=== PATIENT | male | born 1950 | race Caucasian/White ===

== ENCOUNTER → 2024-11-19 | Outpatient (CLI) | payer MEDICARE ==
[2024-11-19 14:32] LABS: INR 0.9 (<1.2); Partial Thromboplastin Time 23.8 sec (22.0-30.0); Prothrombin Time 10.3 sec (10.0-12.5)
--- NOTE | 2024-11-19 15:13 | XR ---
EXAMINATION TYPE: XR chest 2V DATE OF EXAM: 11/19/2024 CLINICAL INDICATION: Male, 74 years old with history of Z01.818 M54.16, preop spine surgery. TECHNIQUE: Frontal and lateral views of the chest are obtained. COMPARISON: None FINDINGS: Underlying emphysematous changes are present. There is no focal air space opacity, pleural effusion, or pneumothorax seen. The cardiac silhouette size is within normal limits. The osseous structures are intact. IMPRESSION: No acute cardiopulmonary process. [facility], , 11/19/2024 3:10 PM
[2024-11-19 18:14] LABS: Basophils # (A) 0.09 X 10*3/uL (0.00-0.10); Basophils % (A) 1.4 %; Eosinophils % (A) 6.1 %; HCT 31.7 % (39.6-50.0); HGB 10.3 g/dL (13.0-17.0); Lymphocytes # (A) 1.06 X 10*3/uL (0.90-5.00); Lymphocytes % (A) 16.1 %; MCH 30.5 pg (27.0-32.0); MCHC 32.5 g/dL (32.0-37.0); MCV 93.8 FL (80.0-97.0); Mean Platelet Volume 9.6 FL (9.5-12.2); Monocytes # (A) 0.83 X 10*3/uL (0.20-1.00); Monocytes % (A) 12.6 %; NRBC Per 100 WBC 0 X 10*3/uL (0.00-0.01); Neutrophils % (A) 63.5 %; Platelet Count 307 X 10*3/uL (140-440); RBC 3.38 X 10*6/uL (4.40-5.60); RDW 12.8 % (11.5-14.5)
[2024-11-19 18:56] LABS: BUN/Creat Ratio 19.25 Ratio (12.00-20.00); Blood Urea Nitrogen 30.8 mg/dL (9.0-27.0); Calcium 9.3 mg/dL (8.7-10.3); Carbon Dioxide 23.8 mmol/L (21.6-31.8); Chloride 94 mmol/L (96-109); Glucose 70 mg/dL (70-110); Potassium 4.8 mmol/L (3.5-5.5); Sodium 130 mmol/L (135-145)
[2024-11-19 19:30] LABS: Appearance,Urine Clear (Clear); Bilirubin,Urine Negative (Negative); Blood,Urine Negative (Negative); Color,Urine Yellow (Yellow); Ketones,Urine Negative (Negative); Nitrite,Urine Negative (Negative); PH, Urine 6.5; Specific Gravity,Urine 1.013 (1.001-1.030); Urobilinogen,Urine 0.2 E.U./DL
== END | disposition home or self-care (01) ==
LOC: LABPAT 13:06
PROVIDERS: ATTEND Orthopaedic Surgery Orthopaedic Surgery of the Spine
DX: Z01.818 Encounter for other preprocedural examination (principal); Z22.322 Carrier or suspected carrier of Methicillin resistant Staphylococcus aureus; M54.16 Radiculopathy, lumbar region
CPT/HCPCS: 36415; 71046; 80048; 81003; 85025; 85610; 85730; 87070; 93005

== ENCOUNTER 2024-12-15 05:44 | Inpatient (IN) | payer MEDICARE ==
[2024-12-15] MEDS: IV FLUID CONTINUATION 1,000 ML IV ONE ×5 (06:40→14:49)
[2024-12-15] MEDS: LACTATED RINGERS 1,000 ML IV SCH (06:55)
[2024-12-15] MEDS: MIDAZOLAM 2 MG/2 ML VIAL IV PRN (06:58)
[2024-12-15] MEDS ORDERED: HYDROmorphone 0.5 MG/0.5 ML SYRINGE IVP PRN (07:00)
[2024-12-15 07:06] LABS: African American GFR (CKD) 62 (>60 ml/min/1.73 sqM); Anion Gap 11 mmol/L; Blood Urea Nitrogen 24 mg/dL (9-20); Calcium 9.4 mg/dL (8.4-10.2); Carbon Dioxide 23 mmol/L (22-30); Chloride 99 mmol/L (98-107); Glucose 90 mg/dL (74-99); Non-African American GFR(CKD) 54 (>60 ml/min/1.73 sqM); Potassium 4.4 mmol/L (3.5-5.1); Sodium 133 mmol/L (137-145)
[2024-12-15] MEDS ORDERED: fentaNYL (PF) 50 MCG/ML 2 ML AMP ONE (07:15)
[2024-12-15] MEDS ORDERED: TRANEXAMIC 1,000 MG/100ML-NACL PREMIX BAG ONE (07:15)
[2024-12-15] MEDS ORDERED: ALBUMIN HUMAN 5% (25gm) 500 ML VIAL IVPB ONE (07:15)
[2024-12-15] MEDS ORDERED: PHENYLEPHRINE 10 MG/ML VIAL ONE (07:15)
[2024-12-15] MEDS ORDERED: MIDAZOLAM 2 MG/2 ML VIAL ONE (07:15)
[2024-12-15] MEDS ORDERED: SUCCINYLCHOLINE CHLORIDE 200 MG/10 ML VIAL IV ONE (07:15)
[2024-12-15] MEDS ORDERED: PROPOFOL 10 MG/ML 20 ML VIAL IV ONE (07:15)
[2024-12-15] MEDS ORDERED: ePHEDrine 50 MG/ML 1 ML VIAL ONE (07:15)
[2024-12-15] MEDS ORDERED: LIDOCAINE 1% INJ 10MG/ML (20 ML MDV) ONE (07:15)
[2024-12-15] MEDS ORDERED: ROCURONIUM 10 MG/ML (5 ML VIAL) IV ONE (07:15)
[2024-12-15] MEDS: ONDANSETRON 4 MG/2 ML VIAL IVP ONE (07:23)
[2024-12-15] MEDS: ceFAZolin 2 GM in DEXTROSE 5% IN WATER 50 ML IVPB PRN (07:30)
[2024-12-15] MEDS: ceFAZolin 1,000 MG in SODIUM CHLORIDE 0.9% IRRIGATIO 1,000 ML IRRIGATION PRN ×2 (08:05→09:50)
[2024-12-15] MEDS: LIDOCAINE 1%-EPI 1:100,000 20 ML VIAL SQ ONE (08:10)
[2024-12-15] MEDS: THROMBIN (BOVINE) 5,000 UNIT VIAL TOPICAL ONE (08:15)
--- NOTE | 2024-12-15 08:21 | P.ANPRN ---
Procedure Note - Anesthesia - Invasive Line Left Arterial Line Time Out Performed: Yes Date of Procedure: 12/15/24 Time of Procedure: 07:10 Location of Patient: PreOp Preparation: Sterile Prep, Sterile Dressing Arterial Line Location: Radial Ultrasound Used: Yes Purpose - Visualization and Identification of Vasculature: Yes Image Stored and Saved: Yes Narrative: Invasive line placement per sterile protocol utilized.
[2024-12-15] MEDS: LACTATED RINGERS 1,000 ML IV ONE (12:41)
--- NOTE | 2024-12-15 12:58 | FL ---
EXAMINATION TYPE: FL guidance operating room, XR lumbar spine 2 or 3V DATE OF EXAM: 12/15/2024 12:54 PM COMPARISON: Pre Operative Images if available both CT/MRI or plain film CLINICAL INDICATION: Male, 74 years old with history of PLDF; TECHNIQUE: FL guidance operating room, XR lumbar spine 2 or 3V, multiple fluoroscopic images provided for procedure. DAP: 4.865 mGym2 Gycm2 uGym2 cGycm2 or equivalent. FINDINGS: Fluoroscopic images during internal fixation demonstrate hardware in appropriate position. Hardware a ppears intact. No immediate complication identified. IMPRESSION: 1. No evidence for intraoperative complication. 2. Please see the operative/procedural note for further details. [facility], , 12/15/2024 12:55 PM
[2024-12-15] MEDS ORDERED: MAGNESIUM HYDROXIDE 2,400 MG/30 ML CUP PO PRN (13:06)
[2024-12-15] MEDS ORDERED: SENNOSIDES-DOCUSATE SODIUM 1 EACH TAB PO PRN (13:06)
[2024-12-15] MEDS ORDERED: BENZOCAINE/MENTHOL LOZENG 1 EACH LOZENGE MUCOUS MEM PRN (13:06)
[2024-12-15] MEDS ORDERED: HYDROmorphone 1 MG/ML 1 ML SYRINGE IVP PRN (13:06)
[2024-12-15] MEDS ORDERED: diazePAM 5 MG TAB PO PRN (13:09)
[2024-12-15] MEDS ORDERED: ALBUTEROL NEBULIZED 2.5 MG/3 ML INHALATION PRN (13:09)
--- NOTE | 2024-12-15 13:22 | P.OP ---
Date of Procedure: 12/15/24 Preoperative Diagnosis: Spinal stenosis, degenerative scoliosis, herniated nucleus pulposus, lower EXTR radiculopathy, neurogenic claudication, degenerative disc disease, low back pain, facet arthrosis Postoperative Diagnosis: Same Anesthesia: GETA Pathology: none sent Condition: stable Disposition: PACU Description of Procedure: BRIEF OPERATIVE NOTE Preoperative Diagnosis: Spinal stenosis, degenerative scoliosis, herniated nucleus pulposus, lower extremity colopathy, neurogenic claudication, facet arthrosis, low back pain Postoperative Diagnosis: Same Procedure: Open posterior lateral lumbar decompression and fusion lumbar spine at L1-2 L2-3 L3-4 L4-5 Wide bilateral open laminectomy decompression with partial foraminotomies and facetectomy L1-L2 3 L3-4 L4-5 Placement of pedicle screws and hardware L1-L2 L3-L4-L5 bilaterally Transforaminal lumbar interbody fusion L3-4 L4-5 for a 360 degree fusion Discectomy for decompression L2-3 L3-4 L4-[address]-guided Neofect navigation system for placement of hardware Use of fluoroscopic guidance intraoperatively Harvesting local autogenous bone graft for use for supplementing the allograft bone graft Harvesting of bone marrow aspirate for supplementation of bone graft Use of Cell Saver Use of intraoperative neuromonitoring Surgeon: Dr. Sanchez Bridge Attacher: Chalino GUZMAN who is present throughout the entire the case persistence during positioning, dissection, exposure, visualization, and all crucial elements of the case as well as closure. Anesthesia: General anesthesia per Dr. Gil Brandt Estimated blood loss: Approximately 200 cc Complications: None apparent Components implanted: K2M Cromwell cannulated pedicle screw system with use of 4.5, 5.5, and 6.5 millimeter screws with rods and interbody peek and titanium cages and 1 cross-link, along with demineralized bone matrix fibers boats to supplement the local antis bone graft Disposition: To recovery room in good stable condition. OPERATIVE INDICATIONS OPERATIVE SUMMARY Patient has longstanding history of low back pain lower extreme radiculopathy which is worsening over the past several months. He has been experiencing pain for several years but has been managing that conservatively. He has been having worsening symptoms of his back in his lower extremities and conservative measures are failing him. He has been having progressive worsening of his symptoms and different treatment options were explained to him. We discussed possibly of surgery and the possibility of fusion at multiple levels given his degenerative scoliosis and relative instability. I discussed with him all the risk complications alternatives benefits including but not limited to the risk of bleeding risk of infection risk of need for further surgery risk of decreased loss of motion loss of function malunion nonunion hardware failure nerve damage paralysis heart attack blindness as well as affect that surgery may not alleviate his symptoms. Patient did have some issues with hyponatremia preoperatively but this was stabilized and he understood the ramifications of these issues. After discussing all the risks, patient alternatives and benefits at length, the patient elected to proceed with surgical intervention, signed informed consent, and presented for their procedure. The patient was seen and examined in the preoperative holding area and the surgical site was marked. The patient was given antibiotics and brought to the operating room. The patient was sedated and intubated by anesthesia in standard fashion. The patient was positioned on to the operating room table in a prone position on the appropriate frame which was well-padded and well molded. We were careful to pad any bony prominences and pressure points. We were careful to maintain the patient's cervical spine and good neutral alignment and position throughout. The patient was prepped and draped in a normal standard fashion. An appropriate timeout and keystone protocol performed. We were able to proceed with the surgery. The local wound area was infiltrated with local anesthetic. An incision was made at the midline longitudinally over the appropriate levels. Dissection was taken down subcutaneously to the level of the fascia which was split midline. Dissection was taken over the lamina bilaterally over the facet joints and to the transverse processes. Intraoperative x-ray was taken which showed a marker at the appropriate level. With the appropriate level positively confirmed, we were able to proceed with placement of the pedicle holes and screws. The patient had all their twitches back. The wound was copiously irrigated and suctioned dry as had been done periodically throughout the case. Screw holes were established similarly at each level. Intraoperatively we used a LOVEFiLM CT navigation guidance system and we were able to place a reference device on the bony landmark approximately L3. With his intact we draped appropriately and did a spin intraoperatively to get excellent visualization and intraoperative real-time visualization for placement of pedicle screws. For placement of pedicle screws I was able to use direct visual technique as well as intraoperative CT guidance as well as fluoroscopic guidance in order to place screws bilaterally at L1 L2-L3-L4 and L5. I was able to establish the sharp Jose Angel Rainey at the pedicle this was placed using CT navigation and direct visualization and then I was able to place a wire into the vertebral body itself. The position was checked at each level and found to have excellent position at L1-L5. Over the wires I was unable to place pedicle screw of appropriate size at L1 L2-L3-L4 and L5 bilaterally in good alignment good position with excellent bony purchase. At each of the levels the transverse process or sacral ala was decorticated with a high-speed bur. I was able to use these holes to place the appropriate size screw and good alignment and good position with good bony purchase. When the screws were inserted there were stimulated, and found to have no stimulation at 20 mA. I was able to turn my attention to the decompression. decompression was performed with a combination of rongeurs, curettes, Kerrison rongeurs and a ball-tip feeler. Patient had evidence of severe stenosis at the neural foramen at each level particular with central stenosis at L2-3 L3-4 and L4-5. I was able to get excellent central bilateral foraminal decompression with laminectomy foraminotomies and partial facetectomy. All of the bone that was removed was stripped and morcellized for use as autogenous bone graft later in the case. I was able to obtain good central decompression as well as wide bilateral foraminal decompression. There is no evidence of dural tear or leak. Good hemostasis was maintained. The wound was irrigated and suctioned dry. I performed a complete facetectomy at the appropriate level L2-3 L3-4 and L4-5. All bone that was removed was saved for local autogenous bone grafting. I was able to gain access to the disc space at the appropriate level/levels. At L2-3 there was no evidence of motion at that level. I felt that there was some degree of autofusion at L2-3 but I was able to do discectomy for some decompression. At L3-4 and L4-5 I was able to mobilize the area well and get excellent decompression wound and discectomy. Discectomy provided further decompression. Good hemostasis was maintained. I was able to protect the neurologic structures. A discectomy was performed. This provided further decompression. I was also able to perform complete discectomy and endplate preparation with a combination of pituitary curettes, rasps and scrapers. With the interbody space prepared, I was able to do appropriate sizing. The appropriate size cage was chosen. The wound was irrigated and suctioned dry. The interbody space was packed with local autogenous bone graft and a small portion of bone graft substitute, as was the cage itself. Protecting the soft tissue structures, I was able place the cage in good alignment and good position with good fit and fill. There is no evidence of extrusion of the graft material nor protrusion of the interbody device. The device was placed to help supplement the alignment of the scoliosis as well. The wound was irrigated and suctioned dry. With the hardware intact, intraoperative x-ray was again taken which showed good alignment and position of the hardware at the appropriate levels from L1 L5. We were then able to measure, contour and place the rods and appropriate hardware bilaterally. I was able to place capcrews, tighten them down, and torque appropriately. I was able to get some reduction of the scoliosis with his as well. The sheared portion was counted and accounted for. With this intact I was able to place the local otitis bone graft with additional bone graft enhancer as necessary into the posterior lateral gutters bilaterally. With the bone graft intact, a stable construct, and good decompression at the appropriate levels, we were able to proceed with closure. Good hemostasis was maintained. There is no evidence of dural tear or leak. The fascia was closed for a watertight closure. The subcutaneous tissue was closed over a superficial drain. The subcuticular tissue was closed with absorbable suture. The wound was cleaned and dried and dressed with the appropriate dressing. The drapes were broken down. The patient was gently rolled back onto their hospital bed being careful to maintain their cervical spine and good neutral alignment and position. They were woken up by anesthesia, extubated, and brought to the recovery room in good stable condition. The patient will be admitted to the hospital for appropriate postoperative care, medical management and monitoring. We will continue to follow them closely about the postoperative course.
[2024-12-15] MEDS: PHENYLEPHRINE-0.9% NACL SYG 1,000 MCG/10 ML SYRINGE IVP ONE (13:47)
[2024-12-15] MEDS: SODIUM CHLORIDE 0.9% 1,000 ML IV SCH (13:54)
[2024-12-15 14:07] LABS: ALT 15 U/L (4-49); AST 27 U/L (17-59); African American GFR (CKD) 54 (>60 ml/min/1.73 sqM); Alkaline Phosphatase 54 U/L (38-126); Anion Gap 11 mmol/L; Blood Urea Nitrogen 22 mg/dL (9-20); Calcium 8.9 mg/dL (8.4-10.2); Carbon Dioxide 21 mmol/L (22-30); Chloride 98 mmol/L (98-107); Glucose 162 mg/dL (74-99); Non-African American GFR(CKD) 46 (>60 ml/min/1.73 sqM); Sodium 130 mmol/L (137-145); Total Bilirubin 0.4 mg/dL (0.2-1.3); Total Protein 4.9 g/dL (6.3-8.2)
[2024-12-15] MEDS: HYDROmorphone 0.5 MG/0.5 ML SYRINGE IVP PRN (15:50)
[2024-12-15] MEDS: DEXAMETHASONE SOD PHOSPHATE 4 MG/ML 1 ML VIAL IV ONE (15:55)
[2024-12-15 17:32] LABS: Basophils # (A) 0.02 10*3/uL (0.00-0.10); Basophils % (A) 0.1 %; Eosinophils # (A) 0.01 10*3/uL (0.04-0.35); Eosinophils % (A) 0.1 %; HCT 26.7 % (39.6-50.0); HGB 8.9 g/dL (13.0-17.0); Lymphocytes # (A) 0.55 10*3/uL (0.90-5.00); Lymphocytes % (A) 3.7 %; MCH 31.6 pg (27.0-32.0); MCHC 33.3 g/dL (32.0-37.0); MCV 94.7 fL (80.0-97.0); Mean Platelet Volume 9.3 fL (9.5-12.2); Monocytes # (A) 1.23 10*3/uL (0.20-1.00); Monocytes % (A) 8.3 %; Neutrophils # (A) 13.01 10*3/uL (1.80-7.70); Neutrophils % (A) 87.4 %; Platelet Count 224 10*3/uL (140-440); RBC 2.82 10*6/uL (4.40-5.60); RDW 12.2 % (11.5-14.5); WBC 14.88 10*3/uL (4.50-10.00)
[2024-12-15] MEDS: ceFAZolin 2 GM in DEXTROSE 5% IN WATER 50 ML IVPB SCH (17:43)
--- NOTE | 2024-12-15 20:02 | P.CONS ---
History of Present Illness - Reason for Consult Consult date: 12/15/24 Medical management Requesting physician: Jarek Sanchez - Chief Complaint Lumbar surgery - History of Present Illness Very pleasant 74-year-old patient, with family Dr. Jackson. Chronic medical conditions include COPD, hard of hearing congenital left ear, h yperlipidemia, hypertension, CKD stage IIIa, transverse mellitus lacks fine motor skill and fatigue, exercise intolerance, mild chronic colitis and exposure to agent orange in [place] [phone]. Patient's current lumbar surgery for chronic low back pain with bilateral radiculopathy and some weakness in the right leg. Postprocedure some pain is present. Has a CHARLY drain. When postop patient was brought to the floor patient's blood pressure was down to the 80s systolic. EBL was about 200 cc. there was not any significant output through the CHARLY drain. Patient does take antihypertensives at home. Postop hemoglobin taken was 8.9. Preop about a month ago was 10.3. No chest pain or shortness of breath. Patient's at the bedside Review of systems: GEN.: None EYES: None HEENT: Decreased hearing left ear] NECK: None RESPIRATORY: None CARDIOVASCULAR: None GASTROINTESTINAL: None GENITOURINARY: Goel catheter] MUSCULOSKELETAL: Low back pain, CHARLY drain LYMPHATICS: None HEMATOLOGICAL: None PSYCHIATRY: None NEUROLOGICAL: Bilateral lower extremity radiculopathy. Right leg weakness preop Social history: ] Patient smoked about half a pack a day for 50 years stopped close to 40 years ago. Does take marijuana Gummies to help sleep. Alcohol rarely. Lives with his Physical examination: VITAL SIGNS: 97, 87, 95/58, 100% on 2 L GENERAL: BMI 20.7, lying bed awake not in distress. EYES: Pupils equal. Conjunctiva ronan l. HEENT: External appearance of nose and ears normal, oral cavity grossly normal. Decreased hearing in the left ear NECK: JVD not raised; masses not palpable. HEART: First and second heart sounds are normal; no edema. LUNGS: Respiratory rate normal; clear to auscultation. ABDOMEN: Soft, nontender, liver spleen not palpable, no masses palpable. PSYCH: Alert and oriented x3; mood and affect ronan l. MUSCULOSKELETAL:No Clubbing/cyanosis;muscles-grossly intact. OA in different joints. Dressing and CHARLY drain lumbar area NEUROLOGICAL: Cranial nerves grossly intact; no facial asymmetry, power and sensation grossly intact. Patient is able to lift both his legs. Sensation grossly preserved LYMPHATICS: No lymph nodes palpable in the axilla and neck INVESTIGATIONS, reviewed in the clinical context: December 15, 2024: White count 14.8 hemoglobin 8.9 platelets 224 sodium 130 potassium 4 BUN 22 creatinine 1.46 Previous labs: November 19, 2024: BUN 30.8 creatinine 1.6 hemoglobin 10.3 Assessment plan: - Spinal stenosis, DJD D, herniated nucleus pulposus, lower extremity colopathy, neurogenic claudication, low back pain. Followed by laminectomy decompression discectomy etc. By Dr. Jarek Sacnhez December 15, [address] - Acute postop hypotension. Patient does take antihypertensives. Estimated blood loss was 200 cc. Could be some component of anesthesia. Hold off amlodipine. Hold lisinopril hydrochlorothiazide for systolic less than 120. Bilateral thigh-high stockings. Follow CBC - Essential hypertension. Currently blood pressure running low. Hold off amlodipine. Use Zestoretic only for systolic blood pressure above 120 - Anemia of chronic kidney disease - Chronic kidney disease stage III yea likely nephrosclerosis Baseline creatinine 1.6 - Hyperlipidemia Lipitor 40 mg nightly - COPD in prior smoker Albuterol as needed. - Hypothyroid Synthroid 2075 mcg a day - GERD Omeprazole 40 mg a day Care was discussed with patient at the bedside. Repeat CBC in the morning. Thank you Dr. 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 right shoulder partial torn ligament. colitis- intermittent diarrhea- problems with citrus foods. pt states exposure to agent orange in [place] [id number]. left ear [place]. History of Any Multi-Drug Resistant Organisms: None Reported Past Surgical History: Hernia Repair, Orthopedic Surgery Additional Past Surgical History / Comment(s): soft tissue cancer removed 2020, left carotid endartectomy, left tibia surg with titanium, colonoscopy Past Anesthesia/Blood Transfusion Reactions: Previous Problems w/ Anesthesia Additional Past Anesthesia/Blood Transfusion Reaction / Comm: had trouble urinating after leg surg & carotid endartectomy Past Psychological History: No Psychological Hx Reported Smoking Status: Former smoker Past Alcohol Use History: Rare Additional Past Alcohol Use History / Comment(s): quit smoking 40 yrs ago; smoked approx 1/2 ppd x 15 yrs. advised no alcohol 24 hrs prior to surg. Past Drug Use History: Marijuana Additional Drug Use History / Comment(s): marijuana gummies to help sleep- advised none 24 hrs prior to surg. - Past Family History Father Family Medical History: Congestive Heart Failure (CHF) Mother Family Medical History: Congestive Heart Failure (CHF), Deep Vein Thrombosis (DVT) Brother(s) Family Medical History: COPD, Coronary Artery Disease (CAD) Additional Family Medical History / Comment(s): CABG Medications and Allergies Home Medications Medication Instructions Recorded Confirmed Type Albuterol Inhaler [Ventolin Hfa 1 - 2 puff INHALATION Q6H PRN 12/09/24 12/15/24 History Inhaler] Aspirin [Adult Low Dose Aspirin EC] 81 mg PO DAILY 12/09/24 12/15/24 History Atorvastatin [Lipitor] 40 mg PO HS 12/09/24 12/15/24 History Clobetasol Propionate [Temovate 1 applic TOPICAL DAILY PRN 12/09/24 12/15/24 History 0.05% Cream] Gabapentin 300 mg PO HS 12/09/24 12/15/24 History Levothyroxine Sodium [Synthroid] 75 mcg PO DAILY 12/09/24 12/15/24 History Lisinopril-Hctz 20-12.5 mg 1 tab PO BID 12/09/24 12/15/24 History [Zestoretic 20-12.5] Omeprazole 40 mg PO DAILY 12/09/24 12/15/24 History Triamcinolone 0.1% Cream [Kenalog 1 applicatio TOPICAL BID PRN 12/09/24 12/15/24 History 0.1% Cream] amLODIPine BESYLATE 5 mg PO DAILY 12/09/24 12/15/24 History buPROPion [Wellbutrin] 75 mg PO DAILY 12/09/24 12/15/24 History diazePAM [Valium] 5 mg PO DAILY PRN 12/09/24 12/15/24 History traMADol HCL 50 mg PO TID PRN 12/09/24 12/15/24 History Allergies Allergy/AdvReac Type Severity Reaction Status Date / Time azithromycin Allergy Rash/Hives Verified 12/15/24 06:42 Physical Exam Vitals: Vital Signs Temp Pulse Pulse Resp BP BP BP 12/15/24 19:03 104/58 12/15/24 17:34 87 95/58 12/15/24 17:19 87 90/53 12/15/24 17:04 88 82/46 12/15/24 16:57 14 88/50 94/52 12/15/24 16:49 90 78/36 12/15/24 16:34 86 70/40 12/15/24 16:20 85 74/43 12/15/24 16:04 85 81/48 12/15/24 15:50 87 16 80/43 12/15/24 15:49 86 80/43 12/15/24 15:21 95/49 12/15/24 15:14 86 12 96/46 12/15/24 15:00 88 12 83/44 12/15/24 14:40 86 12 95/45 12/15/24 14:25 86 12 90/47 12/15/24 14:10 87 12 92/45 12/15/24 13:55 87 12 86/45 12/15/24 13:40 85 12 82/49 12/15/24 13:25 97 F L 90 14 101/50 12/15/24 07:14 74 14 143/83 12/15/24 07:09 87 16 148/70 12/15/24 07:04 80 16 134/71 12/15/24 06:27 97.2 F L 80 16 137/71 Pulse Ox 12/15/24 19:03 12/15/24 17:34 100 12/15/24 17:19 99 12/15/24 17:04 100 12/15/24 16:57 12/15/24 16:49 100 12/15/24 16:34 100 12/15/24 16:20 99 12/15/24 16:04 99 12/15/24 15:50 95 12/15/24 15:49 99 12/15/24 15:21 12/15/24 15:14 100 12/15/24 15:00 100 12/15/24 14:40 100 12/15/24 14:25 100 12/15/24 14:10 100 12/15/24 13:55 100 12/15/24 13:40 100 12/15/24 13:25 98 12/15/24 07:14 12/15/24 07:09 12/15/24 07:04 12/15/24 06:27 100 Intake and Output 12/15/24 12/15/24 12/15/24 06:59 14:59 22:59 Intake Total 3452 Output Total 1000 Balance 2452 Intake: IV 3452 Output: Urine 850 Estimated Blood Loss 150 Other: Weight 69.3 kg 69.3 kg Results CBC & Chem 7: 12/15/24 17:11 12/15/24 13:35 Labs: Abnormal Lab Results - Last 24 Hours (Table) 12/15/24 12/15/24 12/15/24 Range/Units 06:39 13:35 17:11 WBC 14.88 H (4.50-10.00) 10*3/uL RBC 2.82 L (4.40-5.60) 10*6/uL Hgb 8.9 L (13.0-17.0) g/dL Hct 26.7 L (39.6-50.0) % MPV 9.3 L (9.5-12.2) fL Immature Gran # 0.06 H (0.00-0.04) 10*3/uL Neutrophils # 13.01 H (1.80-7.70) 10*3/uL Lymphocytes # 0.55 L (0.90-5.00) 10*3/uL Monocytes # 1.23 H (0.20-1.00) 10*3/uL Eosinophils # 0.01 L (0.04-0.35) 10*3/uL Sodium 133 L 130 L (137-145) mmol/L Carbon Dioxide 21 L (22-30) mmol/L BUN 24 H 22 H (9-20) mg/dL Creatinine 1.30 H 1.46 H (0.66-1.25) mg/dL Glucose 162 H (74-99) mg/dL Total Protein 4.9 L (6.3-8.2) g/dL Albumin 3.0 L (3.5-5.0) g/dL
[2024-12-15] MEDS: GABAPENTIN 300 MG CAP PO SCH (20:11)
[2024-12-15] MEDS: ATORVASTATIN 40 MG TAB PO SCH (20:11)
[2024-12-15] MEDS: LISINOPRIL-HCTZ 20-12.5 MG 1 EACH TAB PO SCH (20:12)
[2024-12-16] MEDS: HYDROcodone/APAP 5-325MG 1 EACH TAB PO PRN (01:38)
[2024-12-16 04:25] LABS: Basophils # (A) 0.03 10*3/uL (0.00-0.10); Basophils % (A) 0.3 %; Eosinophils # (A) 0.01 10*3/uL (0.04-0.35); Eosinophils % (A) 0.1 %; HCT 25.6 % (39.6-50.0); HGB 8.3 g/dL (13.0-17.0); Lymphocytes # (A) 0.63 10*3/uL (0.90-5.00); Lymphocytes % (A) 5.6 %; MCH 30.4 pg (27.0-32.0); MCHC 32.4 g/dL (32.0-37.0); MCV 93.8 fL (80.0-97.0); Mean Platelet Volume 9.9 fL (9.5-12.2); Monocytes # (A) 1.22 10*3/uL (0.20-1.00); Monocytes % (A) 10.8 %; Neutrophils # (A) 9.38 10*3/uL (1.80-7.70); Neutrophils % (A) 82.8 %; Platelet Count 206 10*3/uL (140-440); RBC 2.73 10*6/uL (4.40-5.60); RDW 12.7 % (11.5-14.5); WBC 11.31 10*3/uL (4.50-10.00)
[2024-12-16] MEDS: PANTOPRAZOLE 40 MG TABLET PO SCH (06:25)
[2024-12-16] MEDS: LEVOTHYROXINE 75 MCG TAB PO SCH (06:25)
--- NOTE | 2024-12-16 07:57 | P.PN ---
Progress Note - Text Progress Note Date: 12/16/24 Postoperative day #1 Patient is seen and examined today at bedside. The patient has some pain around the surgical site as expected. He has not yet been out of bed. He is tolerating his regular diet well without any nausea or vomiting. The Goel is intact. Pain is being controlled with medication. Physical Exam Afebrile with stable vital signs Abdomen is soft nontender. Chest has good excursion deep and space expiration The incision site is clean dry and intact. No erythema there is no purulence. Extremities have not had neurologic change from prior to surgery. He has sustained dorsiflexion plantarflexion EHL. He is able to bend and flex his knees. Thighs and calves are soft nontender. Calves and thighs were soft nontender without evidence of DVT. Assessment/Plan Postoperative day #1 status post open decompression and fusion L1-L5 for his degenerative scoliosis with spinal stenosis and lower extremity radiculopathy and neurogenic claudication History of chronic hyponatremia Patient is progressing as expected from the surgery. We will see how he does today try to get up out of bed. He is eager to try to get moving. We will continue to increase the patient's mobilization with therapy. We will continue pain control with oral or IV medications. Medicine is following him as well and he is having appropriate treatment and monitoring. He is hopeful to go home in another day or 2 and he will have to be able to get mobile and in and out of bed on his own, his pain would have to be controlled with orals, he will have to be voiding freely and passing good gas, the wound has been okay and if he can meet those then will be okay for him to go home and he understands this. We'll continue to follow patient closely.
[2024-12-16 08:39] LABS: BUN/Creat Ratio 14.71 Ratio (12.00-20.00); Blood Urea Nitrogen 20.6 mg/dL (9.0-27.0); Carbon Dioxide 23.6 mmol/L (21.6-31.8); Chloride 100 mmol/L (96-109); Glucose 123 mg/dL (70-110); Potassium 4.4 mmol/L (3.5-5.5); Sodium 133 mmol/L (135-145)
[2024-12-16] MEDS ORDERED: amLODIPine 5 MG TAB PO SCH (09:00)
[2024-12-16] MEDS: ASPIRIN 81 MG PO SCH (09:29)
[2024-12-16] MEDS: SENNOSIDES-DOCUSATE SODIUM 1 EACH TAB PO SCH (09:29)
[2024-12-16] MEDS: buPROPion 75 MG TAB PO SCH (09:30)
[2024-12-16] MEDS: CYCLOBENZAPRINE 10 MG TAB PO PRN (09:32)
[2024-12-16] MEDS: ONDANSETRON 4 MG/2 ML VIAL IVP PRN (09:51)
[2024-12-16] MEDS: SODIUM FERRIC GLUCONAT-SUCROSE 125 MG in SODIUM CHLORIDE 0.9% 100 ML IVPB SCH (12:16)
--- NOTE | 2024-12-16 15:44 | P.PN ---
Progress Note - Text Progress Note Date: 12/16/24 - Chief Complaint Lumbar surgery - History of Present Illness Very pleasant 74-year-old patient, with family Dr. Jackson. Chronic medical conditions include COPD, hard of hearing congenital left ear, hyperlipidemia, hypertension, CKD stage IIIa, transverse mellitus lacks fine motor skill and fatigue, exercise intolerance, mild chronic colitis and exposure to agent orange in [place] [id number]. Patient's current lumbar surgery for chronic low back pain with bilateral radiculopathy and some weakness in the right leg. Postprocedure some pain is present. Has a CHARLY drain. When postop patient was brought to the floor patient's blood pressure was down to the 80s systolic. EBL was about 200 cc. there was not any significant output through the CHARLY drain. Patient does take antihypertensives at home. Postop hemoglobin taken was 8.9. Preop about a month ago was 10.3. No chest pain or shortness of breath. Patient's at the bedside December 16: Patient seen earlier today. Some pain present. Physical therapy walked over 140 feet. With a rolling walker. Had all his breakfast. Blood pressure continues to run on the lower side. Antihypertensives have been held. IV Ferrlecit ordered Active Medications Hydrocodone Bitart/Acetaminophen (Hydrocodone/Apap 5-325mg 1 Each Tab) 1 each PO Q4HR PRN PRN Reason: Pain Stop: 01/14/25 13:05 Last Admin: 12/16/24 06:24 Dose: 1 each Albuterol Sulfate (Albuterol Nebulized 2.5 Mg/3 Ml) 2.5 mg INHALATION RT-Q6H PRN PRN Reason: Shortness Of Breath Aspirin (Aspirin 81 Mg) 81 mg PO DAILY ZAYRA Stop: 01/15/25 08:59 Last Admin: 12/16/24 09:29 Dose: 81 mg Atorvastatin Calcium (Atorvastatin 40 Mg Tab) 40 mg PO HS ZAYRA Stop: 01/14/25 20:59 Last Admin: 12/15/24 20:11 Dose: 40 mg Benzocaine/Menthol (Benzocaine/Menthol Lozeng 1 Each Lozenge) 1 each MUCOUS MEM Q4HR PRN PRN Reason: Sore Throat Stop: 01/14/25 13:05 Bupropion HCl (Bupropion 75 Mg Tab) 75 mg PO DAILY ZAYRA Stop: 01/15/25 08:59 Last Admin: 12/16/24 09:30 Dose: 75 mg Cyclobenzaprine HCl (Cyclobenzaprine 10 Mg Tab) 10 mg PO TID PRN PRN Reason: Muscle Spasm Stop: 01/14/25 13:05 Last Admin: 12/16/24 09:32 Dose: 10 mg Diazepam (Diazepam 5 Mg Tab) 5 mg PO DAILY PRN PRN Reason: Anxiety Stop: 01/14/25 13:08 Gabapentin (Gabapentin 300 Mg Cap) 300 mg PO HS [facility] Stop: 01/14/25 20:59 Last Admin: 12/15/24 20:11 Dose: 300 mg Lisinopril/HCTZ (Lisinopril-Hctz 20-12.5 Mg 1 Each Tab) 1 each PO BID [facility] Stop: 01/14/25 20:59 Last Admin: 12/16/24 07:36 Dose: Not Given Hydromorphone HCl (Hydromorphone 1 Mg/Ml 1 Ml Syringe) 1 mg IVP Q4HR PRN PRN Reason: Pain Stop: 01/14/25 13:05 Hydromorphone HCl (Hydromorphone 0.5 Mg/0.5 Ml Syringe) 0.5 mg IVP Q4HR PRN PRN Reason: Pain Stop: 01/14/25 13:05 Last Admin: 12/15/24 22:26 Dose: 0.5 mg Lactated Ringer's (Lactated Ringers) 1,000 mls @ 20 mls/hr IV .Q24H [facility] Stop: 01/14/25 06:27 Last Admin: 12/16/24 03:20 Dose: 20 mls/hr Sodium Chloride (Saline 0.9%) 1,000 mls @ 75 mls/hr IV .[id number] [facility] Stop: 01/14/25 13:14 Last Admin: 12/15/24 14:47 Dose: 75 mls/hr Ferric Sodium Gluconate 125 mg (/ Sodium Chloride) 110 mls @ 100 mls/hr IVPB DAILY [facility] Stop: 12/17/24 10:05 Last Admin: 12/16/24 12:16 Dose: 100 mls/hr Levothyroxine Sodium (Levothyroxine 75 Mcg Tab) 75 mcg PO DAILY@0630 [facility] Last Admin: 06/17/25 06:25 Dose: 75 mcg Magnesium Hydroxide (Magnesium Hydroxide 2,400 Mg/30 Ml Cup) 2,400 mg PO DAILY PRN PRN Reason: Constipation Stop: 01/14/25 13:05 Ondansetron HCl (Ondansetron 4 Mg/2 Ml Vial) 4 mg IVP Q8HR PRN PRN Reason: Nausea And Vomiting Stop: 01/14/25 13:05 Last Admin: 12/16/24 09:51 Dose: 4 mg Pantoprazole Sodium (Pantoprazole 40 Mg Tablet) 40 mg PO -BRKFST [facility] Last Admin: 12/16/24 06:25 Dose: 40 mg Senna/Docusate Sodium (Sennosides-Docusate Sodium 1 Each Tab) 1 each PO DAILY [facility] Stop: 01/15/25 08:59 Last Admin: 12/16/24 09:29 Dose: 1 each Senna/Docusate Sodium (Sennosides-Docusate Sodium 1 Each Tab) 2 each PO DAILY PRN PRN Reason: Constipation Stop: 01/14/25 13:05 Social history: ] Patient smoked about half a pack a day for 50 years stopped close to 40 years ago. Does take marijuana Gummies to help sleep. Alcohol rarely. Lives with his Physical examination: VITAL SIGNS: 99.1, 101, 16, 97 x 57, 95% GENERAL: BMI 20.7, lying bed awake not in distress. EYES: Pupils equal. Conjunctiva ronan l. HEENT: External appearance of nose and ears normal, oral cavity grossly normal. Decreased hearing in the left ear NECK: JVD not raised; masses not palpable. HEART: First and second heart sounds are normal; no edema. LUNGS: Respiratory rate normal; clear to auscultation. ABDOMEN: Soft, nontender, liver spleen not palpable, no masses palpable. PSYCH: Alert and oriented x3; mood and affect ronan l. MUSCULOSKELETAL:No Clubbing/cyanosis;muscles-grossly intact. OA in different joints. Dressing and CHARLY drain lumbar area INVESTIGATIONS, reviewed in the clinical context: December 16: White count 7.3 hemoglobin 8.3 potassium 4.4 creatinine 1.4 December 15, 2024: White count 14.8 hemoglobin 8.9 platelets 224 sodium 130 potassium 4 BUN 22 creatinine 1.46 Previous labs: November 19, 2024: BUN 30.8 creatinine 1.6 hemoglobin 10.3 Assessment plan: - Spinal stenosis, DJD D, herniated nucleus pulposus, lower extremity colopathy, neurogenic claudication, low back pain. Followed by laminectomy decompression discectomy etc. By Dr. Jarek Sanchez December 15, [address] - Acute postop hypotension. Patient does take antihypertensives. Estimated blood loss was 200 cc. Could be some component of anesthesia. Hold off amlodipine. Hold lisinopril hydrochlorothiazide for systolic less than 120. Bilateral thigh-high stockings. Follow CBC - Essential hypertension. Currently blood pressure running low. Hold off amlodipine. Use Zestoretic only for systolic blood pressure above 120 - Anemia of chronic kidney disease - Chronic kidney disease stage III yea likely nephrosclerosis Baseline creatinine 1.6 - Acute postprocedure blood loss anemia expected from surgery IV Ferrlecit - Hyperlipidemia Lipitor 40 mg nightly - COPD in prior smoker Albuterol as needed. - Hypothyroid Synthroid 75 mcg a day - GERD Omeprazole 40 mg a day Discussed with patient. Thank you Dr. 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 right shoulder partial torn ligament. colitis- intermittent diarrhea- problems with citrus foods. pt states exposure to agent orange in [place] [id number]. left ear [place]. History of Any Multi-Drug Resistant Organisms: None Reported Past Surgical History: Hernia Repair, Orthopedic Surgery Additional Past Surgical History / Comment(s): soft tissue cancer removed 2020, left carotid endartectomy, left tibia surg with titanium, colonoscopy Past Anesthesia/Blood Transfusion Reactions: Previous Problems w/ Anesthesia Additional Past Anesthesia/Blood Transfusion Reaction / Comm: had trouble urinating after leg surg & carotid endartectomy Past Psychological History: No Psychological Hx Reported Smoking Status: Former smoker Past Alcohol Use History: Rare Additional Past Alcohol Use History / Comment(s): quit smoking 40 yrs ago; smoked approx 1/2 ppd x 15 yrs. advised no alcohol 24 hrs prior to surg. Past Drug Use History: Marijuana Additional Drug Use History / Comment(s): marijuana gummies to help sleep- advised none 24 hrs prior to surg.
--- NOTE | 2024-12-16 18:08 | P.EN ---
Earlier this evening the nurse called me if patient was having chest pain. Patient has been feeling heaviness in the chest. A bit like a hollow. Discomfort. Simon slightly nauseated. Simon like he may break out into a sweat. Patient already received an aspirin earlier today. Patient was eating his supper. at the bedside. EKG was ordered. Troponin ordered. On examination: 99.5, 109, 16, 95/55, 97% room air General: Propped up in bed, eating supper Neck JVD not raised Lungs: Effort normal clear Cardiovascular: First second sound normal, no edema Psych: AO x 3, mood affect normal INVESTIGATIONS, reviewed in the clinical context: EKG tracing personally reviewed by me-ST segment depression in inferolateral leads. Sinus rhythm Troponin I 2.02 Assessment plan: - Acute non-ST elevation myocardial infarction. Patient did receive a dose of aspirin baby earlier today. Another dose of aspirin 325 mg x 1 will be given. Lipitor will be increased to 80 mg nightly. Spoke to the nurse. Cardiology consulted Care was discussed with the patient and at the bedside. Patient be moved to the cardiology floor. Telemetry. Serial troponin. 2D echo. Given spinal surgery yesterday IV heparin relatively contraindicated. Will also reach out to Dr. Sanchez from orthopedic spine Time spent for critical care about 40 minutes
[2024-12-16] MEDS: ATORVASTATIN 80 MG TAB PO ONE (18:16)
[2024-12-16] MEDS: ASPIRIN 325 MG TAB PO STA (18:16)
[2024-12-16] MEDS: METOPROLOL TARTRATE 12.5 MG TAB PO SCH (20:08)
[2024-12-16] MEDS ORDERED: ATORVASTATIN 80 MG TAB PO SCH (21:00)
[2024-12-17] MEDS: ISOSORBIDE MONONITRATE ER 30 MG TAB.ER.24H PO SCH (09:44)
--- NOTE | 2024-12-17 12:01 | P.CRDCN ---
History of Present Illness Consult date: 12/17/24 Reason for Consult (text): Elevated troponin History of present illness: This is a 74-year-old male patient with no previous cardiac history and does not follow with a airport engineer. He has a past medical history of hypertension, hyperlipidemia, GERD, hypothyroidism. Patient was brought into the hospital by orthopedic spine and is status post lumbar surgery performed on 12/15/2024. Last evening, patient developed chest pain which she describes as a empty sensation. He states it was more severe yesterday and better today. It started after he was getting up and getting ready to eat breakfast. Patient does have a CHARLY drain in place with some bloody drainage. Blood pressure 109/70, heart rate 88, pulse ox 95% on room air. -EKG: Sinus rhythm with no acute ST-T wave changes. -Chest x-ray: -Laboratory studies: Troponin 0.012, 2.02, 1.7. WBC 11.3, hemoglobin 8.3. Sodium 133, potassium 4.4, BUN 20 creatinine 1.4. -Home cardiac medications: Amlodipine 5 mg daily, aspirin 81 mg daily, atorvastatin 40 mg at bedtime, lisinopril/hydrochlorothiazide 20-12.5 mg 1 tablet twice daily. Review Of Systems: At the time of my exam: CONSTITUTIONAL: Denies fever or chills. HEENT: Denies blurred vision, vision changes, or eye pain. Denies hemoptysis CARDIOVASCULAR: Denies chest pain. Denies orthopnea. Denies PND. Denies palpitations RESPIRATORY: Denies shortness of breath. GASTROINTESTINAL: Denies abdominal pain. Denies nausea or vomiting. HEMATOLOGIC: Denies bleeding disorders. GENITOURINARY: Denies any blood in urine. SKIN: Denies puritis. Denies rash. Physical examination: Gen: This is a 74-year-old male in no acute distress VS: reviewed HEENT: Head is atraumatic, normocephalic. Pupils equal, round. Sclerae is anicteric. NECK: Supple. No JVD. LUNGS: Clear to auscultation. No wheezes or rhonchi. No intercostal retraction s. HEART: Regular rate and rhythm. No murmur. ABDOMEN: Soft No tenderness. EXTREMITIES: No pedal edema. No calf tenderness. NEUROLOGICAL: Patient is awake, alert and oriented x3. Assessment: NSTEMI Status post lumbar spine surgery Anemia, possible blood loss anemia Hypertension Hyperlipidemia GERD Hypothyroidism Plan: Continue the current cardiac medications: asa 81mg qd, atorvastatin 80 mg hs, lopressor 12.5 mg BID--these have been started by the on-call airport engineer last pm Add Imdur 30 mg qd May consider adding heparin gtt if cleared by Dr. Sanchez but this is not imperative Obtain 2-D echocardiogram and Doppler study to assess cardiac structure and function Plan is for medical management but patient will need a cardiac ischemic work up at a later time. Patient understands and is agreeable. Further recommendations to follow based upon clinical course Thank you kindly for this consultation. Nurse practitioner note has been reviewed, I agree with documented findings and plan of care. Patient was seen and examined. 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 right shoulder partial torn ligament. colitis- intermittent diarrhea- problems with citrus foods. pt states exposure to agent orange in [place] [id number]. left ear [place]. History of Any Multi-Drug Resistant Organisms: None Reported Past Surgical History: Hernia Repair, Orthopedic Surgery Additional Past Surgical History / Comment(s): soft tissue cancer removed 2020, left carotid endartectomy, left tibia surg with titanium, colonoscopy Past Anesthesia/Blood Transfusion Reactions: Previous Problems w/ Anesthesia Additional Past Anesthesia/Blood Transfusion Reaction / Comment(s): had trouble urinating after leg surg & carotid endartectomy Past Psychological History: No Psychological Hx Reported Smoking Status: Former smoker Past Alcohol Use History: Rare Additional Past Alcohol Use History / Comment(s): quit smoking 40 yrs ago; smoked approx 1/2 ppd x 15 yrs. advised no alcohol 24 hrs prior to surg. Past Drug Use History: Marijuana Additional Drug Use History / Comment(s): marijuana gummies to help sleep- advised none 24 hrs prior to surg. - Past Family History Father Family Medical History: Congestive Heart Failure (CHF) Mother Family Medical History: Congestive Heart Failure (CHF), Deep Vein Thrombosis (DVT) Brother(s) Family Medical History: COPD, Coronary Artery Disease (CAD) Additional Family Medical History / Comment(s): CABG Medications and Allergies Home Medications Medication Instructions Recorded Confirmed Type Albuterol Inhaler [Ventolin Hfa 1 - 2 puff INHALATION Q6H PRN 12/09/24 12/15/24 History Inhaler] Aspirin [Adult Low Dose Aspirin EC] 81 mg PO DAILY 12/09/24 12/15/24 History Atorvastatin [Lipitor] 40 mg PO HS 12/09/24 12/15/24 History Clobetasol Propionate [Temovate 1 applic TOPICAL DAILY PRN 12/09/24 12/15/24 History 0.05% Cream] Gabapentin 300 mg PO HS 12/09/24 12/15/24 History Levothyroxine Sodium [Synthroid] 75 mcg PO DAILY 12/09/24 12/15/24 History Lisinopril-Hctz 20-12.5 mg 1 tab PO BID 12/09/24 12/15/24 History [Zestoretic 20-12.5] Omeprazole 40 mg PO DAILY 12/09/24 12/15/24 History Triamcinolone 0.1% Cream [Kenalog 1 applicatio TOPICAL BID PRN 12/09/24 12/15/24 History 0.1% Cream] amLODIPine BESYLATE 5 mg PO DAILY 12/09/24 12/15/24 History buPROPion [Wellbutrin] 75 mg PO DAILY 12/09/24 12/15/24 History diazePAM [Valium] 5 mg PO DAILY PRN 12/09/24 12/15/24 History traMADol HCL 50 mg PO TID PRN 12/09/24 12/15/24 History Allergies Allergy/AdvReac Type Severity Reaction Status Date / Time azithromycin Allergy Rash/Hives Verified 12/15/24 06:42 Physical Exam Vitals: Vital Signs Temp Pulse Resp BP Pulse Ox 12/17/24 04:25 99.4 F 88 16 109/70 95 12/16/24 23:26 99.5 F 93 16 102/63 95 12/16/24 20:00 100.2 F H 103 H 16 103/65 96 12/16/24 14:07 99.5 F 109 H 16 95/55 97 Intake and Output 12/16/24 12/17/24 12/17/24 22:59 06:59 14:59 Output Total 245 340 Balance -245 -340 Output: Drainage 20 40 Back 20 40 Urine 225 300 Other: Voiding Method Urinal Urinal Weight 70.7 kg Results 12/16/24 03:35 12/16/24 03:35 Cardiac Enzymes 12/16/24 12/16/24 Range/Units 15:49 18:56 Troponin I 2.020 H* 1.790 H* (0.000-0.034) ng/mL Current Medications Generic Name Dose Route Start Last Admin Trade Name Freq PRN Reason Stop Dose Admin Hydrocodone Bitart/Acetaminophen 1 each 12/15/24 13:06 12/17/24 05:14 Hydrocodone/Apap 5-325mg 1 Each Tab PO 01/14/25 13:05 1 each Q4HR PRN Administration Pain Albuterol Sulfate 2.5 mg 12/15/24 13:09 Albuterol Nebulized 2.5 Mg/3 Ml INHALATION RT-Q6H PRN Shortness Of Breath Aspirin 81 mg 12/16/24 09:00 12/17/24 08:38 Aspirin 81 Mg PO 01/15/25 08:59 81 mg DAILY ZAYRA Administration Atorvastatin Calcium 80 mg 12/17/24 21:00 Atorvastatin 80 Mg Tab PO HS ZAYRA Benzocaine/Menthol 1 each 12/15/24 13:06 Benzocaine/Menthol Lozeng 1 Each Lozenge MUCOUS MEM 01/14/25 13:05 Q4HR PRN Sore Throat Bupropion HCl 75 mg 12/16/24 09:00 12/17/24 08:48 Bupropion 75 Mg Tab PO 01/15/25 08:59 75 mg DAILY ZAYRA Administration Cyclobenzaprine HCl 10 mg 12/15/24 13:06 12/16/24 15:50 Cyclobenzaprine 10 Mg Tab PO 01/14/25 13:05 10 mg TID PRN Administration Muscle Spasm Diazepam 5 mg 12/15/24 13:09 Diazepam 5 Mg Tab PO 01/14/25 13:08 DAILY PRN Anxiety Gabapentin 300 mg 12/15/24 21:00 12/16/24 20:08 Gabapentin 300 Mg Cap PO 01/14/25 20:59 300 mg HS ZAYRA Administration Hydromorphone HCl 1 mg 12/15/24 13:06 Hydromorphone 1 Mg/Ml 1 Ml Syringe IVP 01/14/25 13:05 Q4HR PRN Pain Hydromorphone HCl 0.5 mg 12/15/24 13:06 12/17/24 08:41 Hydromorphone 0.5 Mg/0.5 Ml Syringe IVP 01/14/25 13:05 0.5 mg Q4HR PRN Administration Pain Lactated Ringer's 1,000 mls @ 20 mls/hr 12/15/24 06:28 12/17/24 06:23 Lactated Ringers IV 01/14/25 06:27 Not Given .Q24H ZAYRA Sodium Chloride 1,000 mls @ 75 mls/hr 12/15/24 13:15 12/17/24 04:23 Saline 0.9% IV 01/14/25 13:14 75 mls/hr .[id number] ZAYRA Administration Ferric Sodium Gluconate 125 mg 110 mls @ 100 mls/hr 12/16/24 12:00 12/17/24 0 8:39 / Sodium Chloride IVPB 12/17/24 10:05 100 mls/hr DAILY ZAYRA Administration Levothyroxine Sodium 75 mcg 12/16/24 06:30 12/17/24 06:23 Levothyroxine 75 Mcg Tab PO 75 mcg DAILY@0630 ZAYRA Administration Magnesium Hydroxide 2,400 mg 12/15/24 13:06 Magnesium Hydroxide 2,400 Mg/30 Ml Cup PO 01/14/25 13:05 DAILY PRN Constipation Metoprolol Tartrate 12.5 mg 12/16/24 21:00 12/17/24 08:38 Metoprolol Tartrate 12.5 Mg Tab PO 12.5 mg BID ZAYRA Administration Ondansetron HCl 4 mg 12/15/24 13:06 12/16/24 09:51 Ondansetron 4 Mg/2 Ml Vial IVP 01/14/25 13:05 4 mg Q8HR PRN Administration Nausea And Vomiting Pantoprazole Sodium 40 mg 12/16/24 07:30 12/17/24 06:23 Pantoprazole 40 Mg Tablet PO 40 mg [id number] ZAYRA Administration Senna/Docusate Sodium 1 each 12/16/24 09:00 12/17/24 08:55 Sennosides-Docusate Sodium 1 Each Tab PO 01/15/25 08:59 Not Given DAILY ZAYRA Senna/Docusate Sodium 2 each 12/15/24 13:06 Sennosides-Docusate Sodium 1 Each Tab PO 01/14/25 13:05 DAILY PRN Constipation Intake and Output 12/16/24 12/17/24 12/17/24 22:59 06:59 14:59 Output Total 245 340 Balance -245 -340 Output: Drainage 20 40 Back 20 40 Urine 225 300 Other: Voiding Method Urinal Urinal Weight 70.7 kg 12/16/24 03:35 12/16/24 03:35
--- NOTE | 2024-12-17 14:34 | P.PN ---
Progress Note - Text Progress Note Date: 12/17/24 - Chief Complaint Lumbar surgery - History of Present Illness Very pleasant 74-year-old patient, with family Dr. Jackson. Chronic medical conditions include COPD, hard of hearing congenital left ear, hyperlipidemia, hypertension, CKD stage IIIa, transverse mellitus lacks fine motor skill and fatigue, exercise intolerance, mild chronic colitis and exposure to agent orange in [place] [id number]. Patient's current lumbar surgery for chronic low back pain with bilateral radiculopathy and some weakness in the right leg. Postprocedure some pain is present. Has a CHARLY drain. When postop patient was brought to the floor patient's blood pressure was down to the 80s systolic. EBL was about 200 cc. there was not any significant output through the CHARLY drain. Patient does take antihypertensives at home. Postop hemoglobin taken was 8.9. Preop about a month ago was 10.3. No chest pain or shortness of breath. Patient's at the bedside December 16: Patient seen earlier today. Some pain present. Physical therapy walked over 140 feet. With a rolling walker. Had all his breakfast. Blood pressure continues to run on the lower side. Antihypertensives have been held. IV Ferrlecit ordered December 16: Critical care note Earlier this evening the nurse called me if patient was having chest pain. Patient has been feeling heaviness in the chest. A bit like a hollow. Discomfort. Mclean slightly nauseated. Mclean like he may break out into a sweat. Patient already received an aspirin earlier today. Patient was eating his supper. at the bedside. EKG was ordered. Troponin ordered. On examination: 99.5, 109, 16, 95/55, 97% room air General: Propped up in bed, eating supper Neck JVD not raised Lungs: Effort normal clear Cardiovascular: First second sound normal, no edema Psych: AO x 3, mood affect normal INVESTIGATIONS, reviewed in the clinical context: EKG tracing personally reviewed by me-ST segment depression in inferolateral leads. Sinus rhythm Troponin I 2.02 Assessment plan: - Acute non-ST elevation myocardial infarction. Patient did receive a dose of aspirin baby earlier today. Another dose of aspirin 325 mg x 1 will be given. Lipitor will be increased to 80 mg nightly. Spoke to the nurse. Cardiology consulted Care was discussed with the patient and at the bedside. Patient be moved to the cardiology floor. Telemetry. Serial troponin. 2D echo. Given spinal surgery yesterday IV heparin relatively contraindicated. Will also reach out to Dr. Sanchez from orthopedic spine Time spent for critical care about 40 minutes November 18: P patient is moved to the telemetry floor last night. Seen by cardiology earlier today. IV heparin was discontinued. Some oozing in incision site. Patient has slight chest discomfort earlier today. Feels a bit cold. Per cardiology Imdur added. Pending 2D echo. Also Lopressor 12.5 twice daily added. Spoke to the patient and . Active Medications Hydrocodone Bitart/Acetaminophen (Hydrocodone/Apap 5-325mg 1 Each Tab) 1 each PO Q4HR PRN PRN Reason: Pain Stop: 01/14/25 13:05 Last Admin: 12/17/24 05:14 Dose: 1 each Albuterol Sulfate (Albuterol Nebulized 2.5 Mg/3 Ml) 2.5 mg INHALATION RT-Q6H PRN PRN Reason: Shortness Of Breath Aspirin (Aspirin 81 Mg) 81 mg PO DAILY ZAYRA Stop: 01/15/25 08:59 Last Admin: 12/17/24 08:38 Dose: 81 mg Atorvastatin Calcium (Atorvastatin 80 Mg Tab) 80 mg PO HS ZAYRA Benzocaine/Menthol (Benzocaine/Menthol Lozeng 1 Each Lozenge) 1 each MUCOUS MEM Q4HR PRN PRN Reason: Sore Throat Stop: 01/14/25 13:05 Bupropion HCl (Bupropion 75 Mg Tab) 75 mg PO DAILY ZAYRA Stop: 01/15/25 08:59 Last Admin: 12/17/24 08:48 Dose: 75 mg Cyclobenzaprine HCl (Cyclobenzaprine 10 Mg Tab) 10 mg PO TID PRN PRN Reason: Muscle Spasm Stop: 01/14/25 13:05 Last Admin: 12/16/24 15:50 Dose: 10 mg Diazepam (Diazepam 5 Mg Tab) 5 mg PO DAILY PRN PRN Reason: Anxiety Stop: 01/14/25 13:08 Gabapentin (Gabapentin 300 Mg Cap) 300 mg PO HS ZAYRA Stop: 01/14/25 20:59 Last Admin: 12/16/24 20:08 Dose: 300 mg Hydromorphone HCl (Hydromorphone 1 Mg/Ml 1 Ml Syringe) 1 mg IVP Q4HR PRN PRN Reason: Pain Stop: 01/14/25 13:05 Hydromorphone HCl (Hydromorphone 0.5 Mg/0.5 Ml Syringe) 0.5 mg IVP Q4HR PRN PRN Reason: Pain Stop: 01/14/25 13:05 Last Admin: 12/17/24 08:41 Dose: 0.5 mg Lactated Ringer's (Lactated Ringers) 1,000 mls @ 20 mls/hr IV .Q24H [facility] Stop: 01/14/25 06:27 Last Admin: 12/17/24 06:23 Dose: Not Given Sodium Chloride (Saline 0.9%) 1,000 mls @ 75 mls/hr IV .[id number] [facility] Stop: 01/14/25 13:14 Last Admin: 12/17/24 04:23 Dose: 75 mls/hr Isosorbide Mononitrate (Isosorbide Mononitrate Er 30 Mg Tab.Er.24h) 30 mg PO DAILY [facility] Last Admin: 12/17/24 09:44 Dose: 30 mg Levothyroxine Sodium (Levothyroxine 75 Mcg Tab) 75 mcg PO DAILY@0630 [facility] Last Admin: 12/17/24 06:23 Dose: 75 mcg Magnesium Hydroxide (Magnesium Hydroxide 2,400 Mg/30 Ml Cup) 2,400 mg PO DAILY PRN PRN Reason: Constipation Stop: 01/14/25 13:05 Metoprolol Tartrate (Metoprolol Tartrate 12.5 Mg Tab) 12.5 mg PO BID [facility] Last Admin: 12/17/24 08:38 Dose: 12.5 mg Ondansetron HCl (Ondansetron 4 Mg/2 Ml Vial) 4 mg IVP Q8HR PRN PRN Reason: Nausea And Vomiting Stop: 01/14/25 13:05 Last Admin: 12/17/24 12:22 Dose: 4 mg Pantoprazole Sodium (Pantoprazole 40 Mg Tablet) 40 mg PO -BRKFST [facility] Last Admin: 12/17/24 06:23 Dose: 40 mg Senna/Docusate Sodium (Sennosides-Docusate Sodium 1 Each Tab) 1 each PO DAILY [facility] Stop: 01/15/25 08:59 Last Admin: 12/17/24 08:55 Dose: Not Given Senna/Docusate Sodium (Sennosides-Docusate Sodium 1 Each Tab) 2 each PO DAILY PRN PRN Reason: Constipation Stop: 01/14/25 13:05 Social history: ] Patient smoked about half a pack a day for 50 years stopped close to 40 years ago. Does take marijuana Gummies to help sleep. Alcohol rarely. Lives with his Physical examination: VITAL SIGNS: 100, 80, 16, 114 x 63, 95% room GENERAL: BMI 20.7, up in a chair EYES: Pupils equal. Conjunctiva ronan l. HEENT: External appearance of nose and ears normal, oral cavity grossly normal. Decreased hearing in the left ear NECK: JVD not raised; masses not palpable. HEART: First and second heart sounds are normal; no edema. LUNGS: Respiratory rate normal; clear to auscultation. ABDOMEN: Soft, nontender, liver spleen not palpable, no masses palpable. PSYCH: Alert and oriented x3; mood and affect ronan l. MUSCULOSKELETAL:No Clubbing/cyanosis;muscles-grossly intact. OA in different joints. Some oozing over the incision dressing site INVESTIGATIONS, reviewed in the clinical context: Troponin I less than 0.012, 2.02, 1.79 December 16: White count 7.3 hemoglobin 8.3 potassium 4.4 creatinine 1.4 December 15, 2024: White count 14.8 hemoglobin 8.9 platelets 224 sodium 130 potassium 4 BUN 22 creatinine 1.46 Previous labs: November 19, 2024: BUN 30.8 creatinine 1.6 hemoglobin 10.3 Assessment plan: - Spinal stenosis, DJD D, herniated nucleus pulposus, lower extremity colopathy, neurogenic claudication, low back pain. Followed by laminectomy decompression discectomy etc. By Dr. Jarek Sanchez December 15, 2024 Some blood saturation of the incision site. Patient was on IV heparin overnight. Now discontinued. CHARLY drain in place - Acute non-ST elevation myocardial infarction, postoperative Did get IV heparin for some time now discontinued. Imdur. Lopressor. Aspirin. Lipitor. - Acute postop hypotension. Patient does take antihypertensives. Estimated blood loss was 200 cc. Hold off amlodipine. Hold lisinopril hydrochlorothiazide for systolic less than 120. Bilateral thigh-high stockings. Follow CBC - Essential hypertension. Currently blood pressure running low. Amlodipine Zestoretic have been held - Anemia of chronic kidney disease - Chronic kidney disease stage III yea likely nephrosclerosis Baseline creatinine 1.6 - Acute postprocedure blood loss anemia expected from surgery IV Ferrlecit - Hyperlipidemia Lipitor - COPD in prior smoker Albuterol as needed. - Hypothyroid Synthroid 75 mcg a day - GERD Omeprazole 40 mg a day Discussed with patient and . Repeat CBC. Thank you Dr. 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 right shoulder partial torn ligament. colitis- intermittent diarrhea- problems with citrus foods. pt states exposure to agent orange in [place] [id number]. left ear LYTTON. History of Any Multi-Drug Resistant Organisms: None Reported Past Surgical History: Hernia Repair, Orthopedic Surgery Additional Past Surgical History / Comment(s): soft tissue cancer removed 2020, left carotid endartectomy, left tibia surg with titanium, colonoscopy Past Anesthesia/Blood Transfusion Reactions: Previous Problems w/ Anesthesia Additional Past Anesthesia/Blood Transfusion Reaction / Comm: had trouble urinating after leg surg & carotid endartectomy Past Psychological History: No Psychological Hx Reported Smoking Status: Former smoker Past Alcohol Use History: Rare Additional Past Alcohol Use History / Comment(s): quit smoking 40 yrs ago; smoked approx 1/2 ppd x 15 yrs. advised no alcohol 24 hrs prior to surg. Past Drug Use History: Marijuana Additional Drug Use History / Comment(s): marijuana gummies to help sleep- advised none 24 hrs prior to surg.
[2024-12-17 15:06] LABS: HCT 24.7 % (39.6-50.0); HGB 8.2 g/dL (13.0-17.0); MCH 31.5 pg (27.0-32.0); MCHC 33.2 g/dL (32.0-37.0); Mean Platelet Volume 9.9 fL (9.5-12.2); Platelet Count 212 10*3/uL (140-440); RDW 13.1 % (11.5-14.5); WBC 19.19 10*3/uL (4.50-10.00)
--- NOTE | 2024-12-17 15:35 | P.PN ---
Progress Note - Text Progress Note Date: 12/17/24 Orthopedic Spine History of present illness: Patient is a pleasant 74-year-old male who is seen and examined at the bedside following open posterior lateral decompression and fusion performed Sunday. Patient states they are doing well post operatively in regards to his lumbar spine. His low back pain at the surgical site is adequately controlled. He is not currently complain of any lower extremity weakness or radiculopathy. He continues to have a postoperative drain intact. Significantly, he is having other difficulties from medical standpoint. Yesterday he sustained an acute non-ST elevation myocardial infarction. He was transferred to [facility]. He is being seen by cardiology. They are planning to start heparin drip tomorrow. They are also planning for echocardiogram and Doppler study for cardiac structure and function. At the bedside patient states he is currently cold. He is shivering. He has multiple blankets wrapped up around him. He also has some tremor-like symptoms in his upper extremities. He is communicating well and answering questions appropriately. His surgical dressing sided change at the bedside. His drain is left intact. His Goel catheter was discontinued. Physical Exam Lumbar Fusion: Status post surgical day number 2 Patient is awake, alert, and oriented 3 Vital signs stable Patient currently stating he is cold and is wrapped up with multiple blankets at the bedside with some shaking in his upper extremities He is answering questions well and appropriately Good chest excursion with deep inspiration and expiration Dorsiflexion, plantarflexion, and extensor hallucis longus positive sustained bilaterally No signs or symptoms of DVT; no calf pain; pneumatic cuffs not currently intact bilateral lower extremities Optifoam dressings are clean, dry, and intact over the lumbar spine and right iliac crest; no erythema, purulence, or signs of infection Postoperative drain is intact with some drainage around the drain site Dressings over the lumbar midline surgical incision and drain site are changed at the bedside with Optifoam and Tegaderm Neurovascularly intact bilaterally lower extremities Assessment: Status post L1-2, L2-3, L3-4, and L4-5 open posterior lateral decompression and fusion with L3-4 and L4-5 transforaminal lumbar interbody fusion Low back pain Lumbar spinal stenosis Degenerative scoliosis Lumbar herniated nucleus pulposus Lower extremity radiculopathy Neurogenic claudication Lumbar degenerative disc disease Lumbar facet arthrosis Acute non-ST elevation myocardial infarction COPD Hyperlipidemia Hypertension Chronic kidney disease stage IIIa Mild chronic colitis Exposure to agent orange [place] 1970 Hyponatremia Plan: 1. Ambulate as tolerated; work with Physical Therapy to increase mobilization 2. Continue pain control with IV and oral medications; will plan to begin weaning the patient off of IV narcotic medication in anticipation for discharge home in the next 1-2 days 3. Dressings to remain intact with Optifoam; patient may shower with dressings intact; postoperative drain remains intact at the lumbar surgical site just to the left. We will plan for this to be discontinued tomorrow 4. Medical management can continue to manage patient for patient's other medical diagnoses 5. Patient will continue with further workup with cardiology following acute non-ST elevation myocardial infarction. He is planning for echocardiogram and Doppler. He is okay to start heparin drip tomorrow per orthopedic spine. 6. We will continue to follow the patient closely; patient will be planning for discharge home once cleared by multiple medical providers 7. Patient can follow-up with Chailno Keller PA-C or Dr. Nino Sanchez at [facility] in 2-3 weeks following discharge Patient is seen and examined. We had a long talk about his clinical course. Apparently he slid out of the chair this morning and was unable to get up on his own. He still needing significant assistance for getting in and out of he denies any new chest pain. He denies any shortness of breath. Medicine cardiology notes and workup and treatment are appreciated. Patient still needs more strengthening before he can be safely mobile on his own. He will continue work with physical therapy. He is continuing management in terms of medical status and cardiac. He is voiding better. He is tolerating his diet adequately. Adequately controlled with oral medications Hopefully he will continue to improve his mobility and be safe so that he will be able to be discharged home in another day or 2 if he is cleared with medicine
[2024-12-17] MEDS: ATORVASTATIN 80 MG TAB PO SCH (20:27)
[2024-12-18 07:42] LABS: Basophils # (A) 0.03 10*3/uL (0.00-0.10); Basophils % (A) 0.2 %; Eosinophils # (A) 0.09 10*3/uL (0.04-0.35); Eosinophils % (A) 0.6 %; HCT 22.5 % (39.6-50.0); HGB 7.3 g/dL (13.0-17.0); Lymphocytes # (A) 1.08 10*3/uL (0.90-5.00); Lymphocytes % (A) 7.7 %; MCH 30.4 pg (27.0-32.0); MCHC 32.4 g/dL (32.0-37.0); MCV 93.8 fL (80.0-97.0); Mean Platelet Volume 9.7 fL (9.5-12.2); Monocytes # (A) 1.14 10*3/uL (0.20-1.00); Monocytes % (A) 8.1 %; Neutrophils # (A) 11.57 10*3/uL (1.80-7.70); Neutrophils % (A) 82.8 %; Platelet Count 187 10*3/uL (140-440); WBC 13.99 10*3/uL (4.50-10.00)
[2024-12-18 08:00] LABS: African American GFR (CKD) 66 (>60 ml/min/1.73 sqM); Anion Gap 3 mmol/L; Blood Urea Nitrogen 20 mg/dL (9-20); Calcium 8.5 mg/dL (8.4-10.2); Carbon Dioxide 25 mmol/L (22-30); Chloride 101 mmol/L (98-107); Glucose 124 mg/dL (74-99); Non-African American GFR(CKD) 57 (>60 ml/min/1.73 sqM); Sodium 129 mmol/L (137-145)
--- NOTE | 2024-12-18 10:38 | P.PN ---
Progress Note - Text Progress Note Date: 12/18/24 Orthopedic Spine History of present illness: Patient is a pleasant 74-year-old male who is seen and examined at the bedside following open posterior lateral decompression and fusion performed Sunday. Patient states they are doing well post operatively in regards to his lumbar spine. His low back pain at the surgical site is adequately controlled. Movement but is better controlled. He is not currently complain of any lower extremity weakness or radiculopathy. He continues to have a postoperative drain intact. Sunday sustained an acute non-ST elevation myocardial infarction. He was transferred to [facility]. He is being seen by cardiology. They are currently planning to manage him with medicine. They will plan for further evaluation in the outpatient setting. Per cardiology, patient will remain admitted to the hospital for at least 1 more day. Patient looks significantly better today. He is awake, alert, oriented, and happy. His surgical drain is removed at the bedside. His Goel catheter was discontinued. He is voiding without difficulty. Physical Exam Lumbar Fusion: Status post surgical day number 3 Patient is awake, alert, and oriented 3 Vital signs stable He is answering questions well and appropriately Good chest excursion with deep inspiration and expiration Dorsiflexion, plantarflexion, and extensor hallucis longus positive sustained bilaterally No signs or symptoms of DVT; no calf pain; pneumatic cuffs intact bilateral lower extremities Optifoam dressings are clean, dry, and intact over the lumbar spine and right iliac crest; no erythema, purulence, or signs of infection Postoperative drain is intact with some drainage around the drain site; drain is removed with dressing reapplied Dressings over the lumbar midline surgical incision remain intact with Optifoam and Tegaderm Neurovascularly intact bilaterally lower extremities Assessment: Status post L1-2, L2-3, L3-4, and L4-5 open posterior lateral decompression and fusion with L3-4 and L4-5 transforaminal lumbar interbody fusion Low back pain Lumbar spinal stenosis Degenerative scoliosis Lumbar herniated nucleus pulposus Lower extremity radiculopathy Neurogenic claudication Lumbar degenerative disc disease Lumbar facet arthrosis Acute non-ST elevation myocardial infarction COPD Hyperlipidemia Hypertension Chronic kidney disease stage IIIa Mild chronic colitis Exposure to agent orange 1970 Hyponatremia Plan: 1. Ambulate as tolerated; work with Physical Therapy to increase mobilization 2. Continue pain control with IV and oral medications; will plan to begin weaning the patient off of IV narcotic medication in anticipation for discharge home in the next 1-2 days 3. Dressings to remain intact with Optifoam; patient may shower with dressings intact; was discontinued at the bedside today. 4. Medical management can continue to manage patient for patient's other medical diagnoses 5. Patient will continue with further workup with cardiology following acute non-ST elevation myocardial infarction. Planning to manage the patient with medication. Cardiology states patient will stay in the hospital for at least 1 more day before clearance for discharge. 6. We will continue to follow the patient closely; patient will be planning for discharge home once cleared by multiple medical providers. We could possibly consider discharge tomorrow. Patient is seen and examined at bedside. I agree with the above. He is still quite shaky on his feet but is mobilizing somewhat better. He is denying any chest pain or shortness of breath. As he becomes more stable with his mobility and once he is cleared from cardiology we will consider possibly discharge possibly tomorrow
--- NOTE | 2024-12-18 13:54 | P.PN ---
Subjective Progress Note Date: 12/18/24 Reason for Consult (text): Elevated troponin History of present illness: This is a 74-year-old male patient with no previous cardiac history and does not follow with a rn internal medicine. He has a past medical history of hypertension, hyperlipidemia, GERD, hypothyroidism. Patient was brought into the hospital by orthopedic spine and is status post lumbar surgery performed on 12/15/2024. Last evening, patient developed chest pain which she describes as a empty sensation. He states it was more severe yesterday and better today. It started after he was getting up and getting ready to eat breakfast. Patient does have a CHARLY drain in place with some bloody drainage. Blood pressure 109/70, heart rate 88, pulse ox 95% on room air. -EKG: Sinus rhythm with no acute ST-T wave changes. -Chest x-ray: -Laboratory studies: Troponin 0.012, 2.02, 1.7. WBC 11.3, hemoglobin 8.3. Sodium 133, potassium 4.4, BUN 20 creatinine 1.4. -Home cardiac medications: Amlodipine 5 mg daily, aspirin 81 mg daily, atorvastatin 40 mg at bedtime, lisinopril/hydrochlorothiazide 20-12.5 mg 1 tablet twice daily. 12/18/2024 Patient seen and examined. He states he is feeling well today. No chest pain or chest pressure. He remains with CHARLY drain in place. No plan to start heparin drip. Plan remains for medical management but patient will need ischemic workup at a later time. Yesterday, patient was started on a number of new medications including Imdur. Echocardiogram remains pending. Blood pressure 108/64, heart rate 94, pulse ox 95% on room air. Physical examination: Gen: This is a 74-year-old male in no acute distress VS: reviewed HEENT: Head is atraumatic, normocephalic. Pupils equal, round. Sclerae is anicteric. NECK: Supple. No JVD. LUNGS: Clear to auscultation. No wheezes or rhonchi. No intercostal retractions. HEART: Regular rate and rhythm. No murmur. ABDOMEN: Soft No tenderness. EXTREMITIES: No pedal edema. No calf tenderness. NEUROLOGICAL: Patient is awake, alert and oriented x3. Assessment: NSTEMI Status post lumbar spine surgery Anemia, possible blood loss anemia Hypertension Hyperlipidemia GERD Hypothyroidism Plan: Continue the current cardiac medications: asa 81mg qd, atorvastatin 80 mg hs, lopressor 12.5 mg BID Continue Imdur 30 mg qd Obtain 2-D echocardiogram and Doppler study to assess cardiac structure and function Plan is for medical management but patient will need a cardiac ischemic work up at a later time. Patient understands and is agreeable. Further recommendations to follow based upon clinical course Plan to monitor patient overnight and discharge home tomorrow Nurse practitioner note has been reviewed, I agree with documented findings and plan of care. Patient was seen and examined. Objective - Vital Signs Vital signs: Vital Signs Temp 100.2 F H 12/17/24 20:27 Pulse 88 12/18/24 03:58 Resp 16 12/18/24 03:58 BP 105/61 12/18/24 03:58 Pulse Ox 92 L 12/18/24 03:58 FiO2 Intake & Output 12/17/24 12/18/24 12/18/24 18:59 06:59 18:59 Intake Total 960 540 240 Output Total 563 500 Balance 397 40 240 Weight 70 kg Intake: Oral 960 540 240 Output: Drainage 38 25 Back 38 25 Urine 525 475 Other: Voiding Method Urinal Urinal - Labs CBC & Chem 7: 12/18/24 07:20 12/18/24 07:20 Labs: Abnormal Lab Results - Last 24 Hours (Table) 12/17/24 12/18/24 12/18/24 Range/Units 14:47 07:20 07:20 WBC 19.19 H 13.99 H (4.50-10.00) 10*3/uL RBC 2.60 L 2.40 L (4.40-5.60) 10*6/uL Hgb 8.2 L 7.3 L (13.0-17.0) g/dL Hct 24.7 L 22.5 L (39.6-50.0) % Immature Gran # 0.08 H (0.00-0.04) 10*3/uL Neutrophils # 11.57 H (1.80-7.70) 10*3/uL Monocytes # 1.14 H (0.20-1.00) 10*3/uL Sodium 129 L (137-145) mmol/L Glucose 124 H (74-99) mg/dL
--- NOTE | 2024-12-18 18:53 | CA ---
Transthoracic Echo Report Name: Trino Fernandez Age: 74 Gender: M : 1950 Exam Date: 12/18/2024 10:22 Exam Location: [facility] Ht (in): 72 Wt (lb): 152 Ordering Physician: Chandrakant Wilson MD Attending/Referring Phys: Director Child Abuse Therapy Mel Corey RDCS Procedure CPT: Indications: acute LA Cardiac Hx: Technical Quality: Good Contrast 1: Total Dose (mL): Contrast 2: Total Dose (mL): MEASUREMENTS (Male / Female) Normal Values 2D ECHO LV Diastolic Diameter PLAX 4.5 cm 4.2 - 5.9 / 3.9 - 5.3 cm LV Systolic Diameter PLAX 3.5 cm IVS Diastolic Thickness 0.9 cm 0.6 - 1.0 / 0.6 - 0.9 cm LVPW Diastolic Thickness 1.0 cm 0.6 - 1.0 / 0.6 - 0.9 cm LV Relative Wall Thickness 0.4 RV Internal Dim ED PLAX 1.3 cm LA Systolic Diameter LX 3.9 cm 3.0 - 4.0 / 2.7 - 3.8 cm LV Diastolic Volume MOD BP 72.0 cm??? 67 - 155 / 56 - 104 cm??? LV Systolic Volume MOD BP 35.3 cm??? 22 - 58 / 19 - 49 cm??? LV Ejection Fraction MOD BP 50.9 % >= 55 % LV Cardiac Index MOD BP 1729.1 cm???/min???m??? LV Diastolic Volume MOD 4C 73.0 cm??? LV Systolic Volume MOD 4C 36.0 cm??? LV Ejection Fraction MOD 4C 50.7 % LV Cardiac Index MOD 4C 1748.8 cm???/min???m??? LV Diastolic Length 4C 7.9 cm LV Systolic Length 4C 7.4 cm LV Diastolic Volume MOD 2C 67.8 cm??? LV Systolic Volume MOD 2C 32.0 cm??? LV Ejection Fraction MOD 2C 52.8 % LV Cardiac Index MOD 2C 1690.7 cm???/min???m??? LV Diastolic Length 2C 7.4 cm LV Systolic Length 2C 6.7 cm LA Volume 70.0 cm??? 18 - 58 / 22 - 52 cm??? LA Volume Index 37.6 cm???/m??? 16 - 28 cm???/m??? M-MODE Aortic Root Diameter MM 3.3 cm LA Systolic Diameter MM 2.7 cm LA Ao Ratio MM 0.8 AV Cusp Separation MM 2.2 cm DOPPLER MV Area PHT 4.7 cm??? Mitral E Point Velocity 92.8 cm/s Mitral A Point Velocity 67.5 cm/s Mitral E to A Ratio 1.4 MV Deceleration Time 162.6 ms TR Peak Velocity 310.6 cm/s TR Peak Gradient 38.6 mmHg Right Ventricular Systolic Press 42.7 mmHg FINDINGS Left Ventricle Left ventricular ejection fraction is estimated at 55-60 %. Normal Left ventricular size, wall thickness, systolic function with no obvious regional wall motion abnormalities. Right Ventricle Normal right ventricular size and function. Mild pulmonary hypertension. Right Atrium Mild right atrial dilatation. Left Atrium Moderately increased left atrial volume. Mitral Valve Structurally normal mitral valve. Mild mitral regurgitation. No mitral stenosis. Aortic Valve Trileaflet aortic valve. No aortic valve stenosis or regurgitation.aortic valve sclerosis. Tricuspid Valve Structurally normal tricuspid valve. Mild tricuspid regurgitation. Pulmonic Valve Structurally normal pulmonic valve. Trace pulmonic regurgitation. No pulmonic stenosis. Pericardium No pericardial or pleural effusion. Aorta Normal size aortic root and proximal ascending aorta. CONCLUSIONS 1. Normal left ventricular size and systolic function 2. Mild mitral and tricuspid regurgitation with mild pulmonary hypertension Previewed by: Dr. John Paul Butt MD (Electronically Signed) Final Date: 18 December 2024 18:52
--- NOTE | 2024-12-18 20:03 | P.PN ---
Progress Note - Text Progress Note Date: 12/18/24 - Chief Complaint Lumbar surgery - History of Present Illness Very pleasant 74-year-old patient, with family Dr. Jackson. Chronic medical conditions include COPD, hard of hearing congenital left ear, hyperlipidemia, hypertension, CKD stage IIIa, transverse mellitus lacks fine motor skill and fatigue, exercise intolerance, mild chronic colitis and exposure to agent orange in [place] [id number]. Patient's current lumbar surgery for chronic low back pain with bilateral radiculopathy and some weakness in the right leg. Postprocedure some pain is present. Has a CHARLY drain. When postop patient was brought to the floor patient's blood pressure was down to the 80s systolic. EBL was about 200 cc. there was not any significant output through the CHARLY drain. Patient does take antihypertensives at home. Postop hemoglobin taken was 8.9. Preop about a month ago was 10.3. No chest pain or shortness of breath. Patient's at the bedside December 16: Patient seen earlier today. Some pain present. Physical therapy walked over 140 feet. With a rolling walker. Had all his breakfast. Blood pressure continues to run on the lower side. Antihypertensives have been held. IV Ferrlecit ordered December 16: Critical care note Earlier this evening the nurse called me if patient was having chest pain. Patient has been feeling heaviness in the chest. A bit like a hollow. Discomfort. [place] slightly nauseated. [place] like he may break out into a sweat. Patient already received an aspirin earlier today. Patient was eating his supper. at the bedside. EKG was ordered. Troponin ordered. On examination: 99.5, 109, 16, 95/55, 97% room air General: Propped up in bed, eating supper Neck JVD not raised Lungs: Effort normal clear Cardiovascular: First second sound normal, no edema Psych: AO x 3, mood affect normal INVESTIGATIONS, reviewed in the clinical context: EKG tracing personally reviewed by me-ST segment depression in inferolateral leads. Sinus rhythm Troponin I 2.02 Assessment plan: - Acute non-ST elevation myocardial infarction. Patient did receive a dose of aspirin baby earlier today. Another dose of aspirin 325 mg x 1 will be given. Lipitor will be increased to 80 mg nightly. Spoke to the nurse. Cardiology consulted Care was discussed with the patient and at the bedside. Patient be moved to the cardiology floor. Telemetry. Serial troponin. 2D echo. Given spinal surgery yesterday IV heparin relatively contraindicated. Will also reach out to Dr. Sanchez from orthopedic spine Time spent for critical care about 40 minutes November 18: P patient is moved to the telemetry floor last night. Seen by cardiology earlier today. IV heparin was discontinued. Some oozing in incision site. Patient has slight chest discomfort earlier today. Feels a bit cold. Per cardiology Imdur added. Pending 2D echo. Also Lopressor 12.5 twice daily added. Spoke to the patient and . December 18: No chest pain. Told the patient to increase activity. 2D echo showed preserved LV function. No wall motion abnormality reported. Does feel a bit tired. Discussed with patient and . Oral intake fair Active Medications Hydrocodone Bitart/Acetaminophen (Hydrocodone/Apap 5-325mg 1 Each Tab) 1 each PO Q4HR PRN PRN Reason: Pain Stop: 01/14/25 13:05 Last Admin: 12/17/24 05:14 Dose: 1 each Albuterol Sulfate (Albuterol Nebulized 2.5 Mg/3 Ml) 2.5 mg INHALATION RT-Q6H PRN PRN Reason: Shortness Of Breath Aspirin (Aspirin 81 Mg) 81 mg PO DAILY ZAYRA Stop: 01/15/25 08:59 Last Admin: 12/17/24 08:38 Dose: 81 mg Atorvastatin Calcium (Atorvastatin 80 Mg Tab) 80 mg PO HS [facility] Benzocaine/Menthol (Benzocaine/Menthol Lozeng 1 Each Lozenge) 1 each MUCOUS MEM Q4HR PRN PRN Reason: Sore Throat Stop: 01/14/25 13:05 Bupropion HCl (Bupropion 75 Mg Tab) 75 mg PO DAILY ZAYRA Stop: 01/15/25 08:59 Last Admin: 12/17/24 08:48 Dose: 75 mg Cyclobenzaprine HCl (Cyclobenzaprine 10 Mg Tab) 10 mg PO TID PRN PRN Reason: Muscle Spasm Stop: 01/14/25 13:05 Last Admin: 12/16/24 15:50 Dose: 10 mg Diazepam (Diazepam 5 Mg Tab) 5 mg PO DAILY PRN PRN Reason: Anxiety Stop: 01/14/25 13:08 Gabapentin (Gabapentin 300 Mg Cap) 300 mg PO HS ZAYRA Stop: 01/14/25 20:59 Last Admin: 12/16/24 20:08 Dose: 300 mg Hydromorphone HCl (Hydromorphone 1 Mg/Ml 1 Ml Syringe) 1 mg IVP Q4HR PRN PRN Reason: Pain Stop: 01/14/25 13:05 Hydromorphone HCl (Hydromorphone 0.5 Mg/0.5 Ml Syringe) 0.5 mg IVP Q4HR PRN PRN Reason: Pain Stop: 01/14/25 13:05 Last Admin: 12/17/24 08:41 Dose: 0.5 mg Lactated Ringer's (Lactated Ringers) 1,000 mls @ 20 mls/hr IV .Q24H [facility] Stop: 01/14/25 06:27 Last Admin: 12/17/24 06:23 Dose: Not Given Sodium Chloride (Saline 0.9%) 1,000 mls @ 75 mls/hr IV .[id number] [facility] Stop: 01/14/25 13:14 Last Admin: 12/17/24 04:23 Dose: 75 mls/hr Isosorbide Mononitrate (Isosorbide Mononitrate Er 30 Mg Tab.Er.24h) 30 mg PO DAILY [facility] Last Admin: 12/17/24 09:44 Dose: 30 mg Levothyroxine Sodium (Levothyroxine 75 Mcg Tab) 75 mcg PO DAILY@0630 [facility] Last Admin: 12/17/24 06:23 Dose: 75 mcg Magnesium Hydroxide (Magnesium Hydroxide 2,400 Mg/30 Ml Cup) 2,400 mg PO DAILY PRN PRN Reason: Constipation Stop: 01/14/25 13:05 Metoprolol Tartrate (Metoprolol Tartrate 12.5 Mg Tab) 12.5 mg PO BID [facility] Last Admin: 12/17/24 08:38 Dose: 12.5 mg Ondansetron HCl (Ondansetron 4 Mg/2 Ml Vial) 4 mg IVP Q8HR PRN PRN Reason: Nausea And Vomiting Stop: 01/14/25 13:05 Last Admin: 12/17/24 12:22 Dose: 4 mg Pantoprazole Sodium (Pantoprazole 40 Mg Tablet) 40 mg PO AC-[id number] [facility] Last Admin: 12/17/24 06:23 Dose: 40 mg Senna/Docusate Sodium (Sennosides-Docusate Sodium 1 Each Tab) 1 each PO DAILY ZAYRA Stop: 01/15/25 08:59 Last Admin: 12/17/24 08:55 Dose: Not Given Senna/Docusate Sodium (Sennosides-Docusate Sodium 1 Each Tab) 2 each PO DAILY PRN PRN Reason: Constipation Stop: 01/14/25 13:05 Social history: ] Patient smoked about half a pack a day for 50 years stopped close to 40 years ago. Does take marijuana Gummies to help sleep. Alcohol rarely. Lives with his Physical examination: VITAL SIGNS: 100, 80, 16, 114 x 63, 95% room GENERAL: BMI 20.7, up in a chair EYES: Pupils equal. Conjunctiva ronan l. HEENT: External appearance of nose and ears normal, oral cavity grossly normal. Decreased hearing in the left ear NECK: JVD not raised; masses not palpable. HEART: First and second heart sounds are normal; no edema. LUNGS: Respiratory rate normal; clear to auscultation. ABDOMEN: Soft, nontender, liver spleen not palpable, no masses palpable. PSYCH: Alert and oriented x3; mood and affect ronan l. MUSCULOSKELETAL:No Clubbing/cyanosis;muscles-grossly intact. OA in different joints. Some oozing over the incision dressing site INVESTIGATIONS, reviewed in the clinical context: 2D echo shows preserved LV function no wall motion abnormality December 18: White count 13.9 hemoglobin 7.3 potassium 4 creatinine 1.23 Troponin I less than 0.012, 2.02, 1.79 December 16: White count 7.3 hemoglobin 8.3 potassium 4.4 creatinine 1.4 December 15, 2024: White count 14.8 hemoglobin 8.9 platelets 224 sodium 130 potassium 4 BUN 22 creatinine 1.46 Previous labs: November 19, 2024: BUN 30.8 creatinine 1.6 hemoglobin 10.3 Assessment plan: - Spinal stenosis, DJD D, herniated nucleus pulposus, lower extremity colopathy, neurogenic claudication, low back pain. Followed by laminectomy decompression discectomy etc. By Dr. Jarek Sanchez December 15, 2024 Some blood saturation of the incision site. Patient was on IV heparin overnight. Now discontinued. CHARLY drain in place - Acute non-ST elevation myocardial infarction, postoperative Did get IV heparin for some time now discontinued. Imdur. Lopressor. Aspirin. Lipitor. 2D echo shows preserved LV function, no wall motion abnormality Being followed by cardiology - Acute postop hypotension. Patient does take antihypertensives. Estimated blood loss was 200 cc. Hold off amlodipine. Hold lisinopril hydrochlorothiazide for systolic less than 120. Bilateral thigh-high stockings. Follow CBC - Essential hypertension. Currently blood pressure running low. Amlodipine Zestoretic have been held Lopressor 12.5 p.o. twice daily - Anemia of chronic kidney disease - Chronic kidney disease stage III yea likely nephrosclerosis Baseline creatinine 1.6 - Acute postprocedure blood loss anemia expected from surgery IV Ferrlecit - Hyperlipidemia Lipitor - COPD in prior smoker Albuterol as needed. - Hypothyroid Synthroid 75 mcg a day - GERD Omeprazole 40 mg a day Increase activity. Discussed with patient Thank you Dr. 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 right shoulder partial torn ligament. colitis- intermittent diarrhea- problems with citrus foods. pt states exposure to agent orange in [place] [id number]. left ear ELIM IRA. History of Any Multi-Drug Resistant Organisms: None Reported Past Surgical History: Hernia Repair, Orthopedic Surgery Additional Past Surgical History / Comment(s): soft tissue cancer removed 2020, left carotid endartectomy, left tibia surg with titanium, colonoscopy Past Anesthesia/Blood Transfusion Reactions: Previous Problems w/ Anesthesia Additional Past Anesthesia/Blood Transfusion Reaction / Comm: had trouble urinating after leg surg & carotid endartectomy Past Psychological History: No Psychological Hx Reported Smoking Status: Former smoker Past Alcohol Use History: Rare Additional Past Alcohol Use History / Comment(s): quit smoking 40 yrs ago; smoked approx 1/2 ppd x 15 yrs. advised no alcohol 24 hrs prior to surg. Past Drug Use History: Marijuana Additional Drug Use History / Comment(s): marijuana gummies to help sleep- advised none 24 hrs prior to surg.
--- NOTE | 2024-12-19 07:57 | P.DS ---
Providers Date of admission: 12/17/24 09:55 Attending physician: Jarek Sanchez Consults: 12/15/24 13:22 Consult Physician Routine Consulting Provider: Chandrakant Wilson Consult Reason/Comments: Medical management, history of hyponatremia Do you want consulting provider notified?: Yes 12/16/24 16:57 Consult Physician Stat Consulting Provider: Puma Teran Consult Reason/Comments: Troponin 2.02 Do you want consulting provider notified?: Yes Primary care physician: Stated None Hospital Course: Postoperative day #4 Patient is seen and examined today at bedside. The patient has some pain around the surgical site as expected. Pain is being controlled with medication. He is becoming more mobile with his back. He is getting to be more stable on his feet. He is tolerating his regular diet. He denies any chest pain or shortness of breath. He still has not had a bowel movement. He is passing small amount of gas. Physical Exam Afebrile with stable vital signs Abdomen is soft nontender. Mild distention without any pain chest has good excursion deep and space expiration The incision site is clean dry and intact. No erythema there is no purulence. His back appears to be clear Extremities have not had neurologic change from prior to surgery. He has sustained dorsiflexion plantarflexion EHL Calves and thighs were soft nontender without evidence of DVT. Assessment/Plan Postoperative day #4 status post open decompression and fusion L1 L5 for his spinal stenosis with degenerative scoliosis and lower extremity colopathy and neurogenic claudication Chest pain seems to be stabilized without evidence of loss of cardiac function Patient is progressing as a little bit slowly from the surgery in terms of his ability to mobilize and have bowel movements. His cardiac issues seem to be stabilized We will continue to increase the patient's mobilization with therapy. He is tolerating his regular diet voiding freely. His pain is controlled and his incision is looking good. We will continue pain control with oral medications. We will see if he makes some progress with Dulcolax suppository today with his bowel movements as he continues to try. If he is able to mobilize better and be stable on his feet, and if he is able to have bowel movement then I think it is okay for him to discharge home today if he is clear with medicine service. He will need to establish good safety to be able to be at home otherwise we may have to consider inpatient snf or rehab. Patient Condition at Discharge: Fair Plan - Discharge Summary Discharge Rx Participant: No New Discharge Prescriptions: No Action buPROPion [Wellbutrin] 75 mg PO DAILY traMADol HCL 50 mg PO TID PRN PRN Reason: Pain Triamcinolone 0.1% Cream [Kenalog 0.1% Cream] 1 applicatio TOPICAL BID PRN PRN Reason: eczema Omeprazole 40 mg PO DAILY Aspirin [Adult Low Dose Aspirin EC] 81 mg PO DAILY amLODIPine BESYLATE 5 mg PO DAILY Gabapentin 300 mg PO HS Atorvastatin [Lipitor] 40 mg PO HS Lisinopril-Hctz 20-12.5 mg [Zestoretic 20-12.5] 1 tab PO BID Clobetasol Propionate [Temovate 0.05% Cream] 1 applic TOPICAL DAILY PRN PRN Reason: eczema diazePAM [Valium] 5 mg PO DAILY PRN PRN Reason: Anxiety Albuterol Inhaler [Ventolin Hfa Inhaler] 1 - 2 puff INHALATION Q6H PRN PRN Reason: Shortness Of Breath Levothyroxine Sodium [Synthroid] 75 mcg PO DAILY Discharge Medication List Albuterol Inhaler [Ventolin Hfa Inhaler] 1 - 2 puff INHALATION Q6H PRN 12/09/24 [History] Aspirin [Adult Low Dose Aspirin EC] 81 mg PO DAILY 12/09/24 [History] Atorvastatin [Lipitor] 40 mg PO HS 12/09/24 [History] Clobetasol Propionate [Temovate 0.05% Cream] 1 applic TOPICAL DAILY PRN 12/09/24 [History] Gabapentin 300 mg PO HS 12/09/24 [History] Levothyroxine Sodium [Synthroid] 75 mcg PO DAILY 12/09/24 [History] Lisinopril-Hctz 20-12.5 mg [Zestoretic 20-12.5] 1 tab PO BID 12/09/24 [History] Omeprazole 40 mg PO DAILY 12/09/24 [History] Triamcinolone 0.1% Cream [Kenalog 0.1% Cream] 1 applicatio TOPICAL BID PRN 12/09/24 [History] amLODIPine BESYLATE 5 mg PO DAILY 12/09/24 [History] buPROPion [Wellbutrin] 75 mg PO DAILY 12/09/24 [History] diazePAM [Valium] 5 mg PO DAILY PRN 12/09/24 [History] traMADol HCL 50 mg PO TID PRN 12/09/24 [History] Follow up Appointment(s)/Referral(s): Chalino Keller, GATO [PHYSICIAN BILLET BED OPERATOR] - 2 Weeks (Patient may follow-up with Chalino Keller PA-C or Dr. Nino Sanchez at [facility] in 2-3 weeks following discharge. ) Activity/Diet/Wound Care/Special Instructions: 1. Patient may shower with Optifoam dressing intact. 2. Patient may remove Optifoam dressing in 3 days and shower without a dressing at that time. 3. Patient should refrain from driving until at least after their first follow- up appointment in the office. 4. Patient should avoid excessive bending, twisting, lifting; avoid overhead lifting; no lifting greater than 10 pounds 5. Take medications as prescribed 6. Patient should avoid anti-inflammatory medications over the next 6 weeks postoperatively 7. Do not soak in tub
[2024-12-19 08:14] LABS: Basophils # (A) 0.03 10*3/uL (0.00-0.10); Basophils % (A) 0.3 %; Eosinophils % (A) 1.8 %; HCT 23.3 % (39.6-50.0); HGB 7.6 g/dL (13.0-17.0); Lymphocytes # (A) 0.85 10*3/uL (0.90-5.00); Lymphocytes % (A) 7.6 %; MCH 30.6 pg (27.0-32.0); MCHC 32.6 g/dL (32.0-37.0); Mean Platelet Volume 9.8 fL (9.5-12.2); Monocytes # (A) 0.83 10*3/uL (0.20-1.00); Monocytes % (A) 7.5 %; Neutrophils # (A) 9.15 10*3/uL (1.80-7.70); Neutrophils % (A) 82.2 %; Platelet Count 217 10*3/uL (140-440); RBC 2.48 10*6/uL (4.40-5.60); RDW 12.9 % (11.5-14.5); WBC 11.13 10*3/uL (4.50-10.00)
[2024-12-19 08:47] LABS: African American GFR (CKD) 76 (>60 ml/min/1.73 sqM); Anion Gap 6 mmol/L; Blood Urea Nitrogen 19 mg/dL (9-20); Calcium 8.7 mg/dL (8.4-10.2); Carbon Dioxide 24 mmol/L (22-30); Chloride 101 mmol/L (98-107); Glucose 139 mg/dL (74-99); Non-African American GFR(CKD) 65 (>60 ml/min/1.73 sqM); Potassium 3.6 mmol/L (3.5-5.1); Sodium 131 mmol/L (137-145)
[2024-12-19 09:56] VITALS: RESP 16
[2024-12-19] MEDS: bisacodyL 10 MG SUPP RECTAL SCH (10:40)
--- NOTE | 2024-12-19 14:03 | P.PN ---
Subjective Progress Note Date: 12/19/24 Reason for Consult (text): Elevated troponin History of present illness: This is a 74-year-old male patient with no previous cardiac history and does not follow with a broker agricultural [employer]. He has a past medical history of hypertension, hyperlipidemia, GERD, hypothyroidism. Patient was brought into the hospital by orthopedic spine and is status post lumbar surgery performed on 12/15/2024. Last evening, patient developed chest pain which she describes as a empty sensation. He states it was more severe yesterday and better today. It started after he was getting up and getting ready to eat breakfast. Patient does have a CHARLY drain in place with some bloody drainage. Blood pressure 109/70, heart rate 88, pulse ox 95% on room air. -EKG: Sinus rhythm with no acute ST-T wave changes. -Chest x-ray: -Laboratory studies: Troponin 0.012, 2.02, 1.7. WBC 11.3, hemoglobin 8.3. Sodium 133, potassium 4.4, BUN 20 creatinine 1.4. -Home cardiac medications: Amlodipine 5 mg daily, aspirin 81 mg daily, atorvastatin 40 mg at bedtime, lisinopril/hydrochlorothiazide 20-12.5 mg 1 tablet twice daily. 12/18/2024 Patient seen and examined. He states he is feeling well today. No chest pain or chest pressure. He remains with CHARLY drain in place. No plan to start heparin drip. Plan remains for medical management but patient will need ischemic workup at a later time. Yesterday, patient was started on a number of new medications including Imdur. Echocardiogram remains pending. Blood pressure 108/64, heart rate 94, pulse ox 95% on room air. 12/19/2024 Patient seen and examined. He denies chest pain or chest pressure, no chest tightness. He denies shortness of breath. Regarding follow-up outpatient, patient states he will follow-up with a broker agricultural [employer] in [place]. Blood pressure 125/66, heart rate 80, pulse ox 95% on room air. Repeat blood work reveals hemoglobin 7.6, BUN 19 creatinine 1.1, potassium 3.6, sodium 131. Echocardiogram reveals normal left ventricular size and systolic function. Mild mitral and tricuspid regurgitation with mild pulmonary hypertension. Physical examination: Gen: This is a 74-year-old male in no acute distress VS: reviewed HEENT: Head is atraumatic, normocephalic. Pupils equal, round. Sclerae is anicteric. NECK: Supple. No JVD. LUNGS: Clear to auscultation. No wheezes or rhonchi. No intercostal retractions . HEART: Regular rate and rhythm. No murmur. ABDOMEN: Soft No tenderness. EXTREMITIES: No pedal edema. No calf tenderness. NEUROLOGICAL: Patient is awake, alert and oriented x3. Assessment: NSTEMI Status post lumbar spine surgery Anemia, possible blood loss anemia Hypertension Hyperlipidemia GERD Hypothyroidism Plan: Continue the current cardiac medications: asa 81mg qd, atorvastatin 80 mg hs, lopressor 12.5 mg BID Continue Imdur 30 mg qd Plan is for medical management but patient will need a cardiac ischemic work up at a later time. Patient understands and is agreeable. Patient will follow-up with a broker agricultural [employer] in [place] Patient is cleared for discharge from a cardiology perspective. Nurse practitioner note has been reviewed, I agree with documented findings and plan of care. Patient was seen and examined. Objective - Vital Signs Vital signs: Vital Signs Temp 98.8 F 12/19/24 04:37 Pulse 84 12/19/24 04:37 Resp 18 12/19/24 04:37 BP 136/68 12/19/24 04:37 Pulse Ox 95 12/19/24 04:37 FiO2 Intake & Output 12/18/24 12/19/24 12/19/24 18:59 06:59 18:59 Intake Total 960 338 Output Total 175 100 250 Balance 785 -100 88 Weight 70 kg Intake: Oral 960 338 Output: Urine 175 100 250 Other: Voiding Method Urinal Urinal # Voids 1 1 - Labs CBC & Chem 7: 12/19/24 07:52 12/19/24 07:52 Labs: Abnormal Lab Results - Last 24 Hours (Table) 12/19/24 12/19/24 Range/Units 07:52 07:52 WBC 11.13 H (4.50-10.00) 10*3/uL RBC 2.48 L (4.40-5.60) 10*6/uL Hgb 7.6 L (13.0-17.0) g/dL Hct 23.3 L (39.6-50.0) % Immature Gran # 0.07 H (0.00-0.04) 10*3/uL Neutrophils # 9.15 H (1.80-7.70) 10*3/uL Lymphocytes # 0.85 L (0.90-5.00) 10*3/uL Sodium 131 L (137-145) mmol/L Glucose 139 H (74-99) mg/dL
--- NOTE | 2024-12-19 18:08 | P.PN ---
Progress Note - Text Progress Note Date: 12/19/24 - Chief Complaint Lumbar surgery - History of Present Illness Very pleasant 74-year-old patient, with family Dr. Jackson. Chronic medical conditions include COPD, hard of hearing congenital left ear, hyperlipidemia, hypertension, CKD stage IIIa, transverse mellitus lacks fine motor skill and fatigue, exercise intolerance, mild chronic colitis and exposure to agent orange in [place] [id number]. Patient's current lumbar surgery for chronic low back pain with bilateral radiculopathy and some weakness in the right leg. Postprocedure some pain is present. Has a CHARLY drain. When postop patient was brought to the floor patient's blood pressure was down to the 80s systolic. EBL was about 200 cc. there was not any significant output through the CHARLY drain. Patient does take antihypertensives at home. Postop hemoglobin taken was 8.9. Preop about a month ago was 10.3. No chest pain or shortness of breath. Patient's at the bedside December 16: Patient seen earlier today. Some pain present. Physical therapy walked over 140 feet. With a rolling walker. Had all his breakfast. Blood pressure continues to run on the lower side. Antihypertensives have been held. IV Ferrlecit ordered December 16: Critical care note Earlier this evening the nurse called me if patient was having chest pain. Patient has been feeling heaviness in the chest. A bit like a hollow. Discomfort. [place] slightly nauseated. [place] like he may break out into a sweat. Patient already received an aspirin earlier today. Patient was eating his supper. at the bedside. EKG was ordered. Troponin ordered. On examination: 99.5, 109, 16, 95/55, 97% room air General: Propped up in bed, eating supper Neck JVD not raised Lungs: Effort normal clear Cardiovascular: First second sound normal, no edema Psych: AO x 3, mood affect normal INVESTIGATIONS, reviewed in the clinical context: EKG tracing personally reviewed by me-ST segment depression in inferolateral leads. Sinus rhythm Troponin I 2.02 Assessment plan: - Acute non-ST elevation myocardial infarction. Patient did receive a dose of aspirin baby earlier today. Another dose of aspirin 325 mg x 1 will be given. Lipitor will be increased to 80 mg nightly. Spoke to the nurse. Cardiology consulted Care was discussed with the patient and at the bedside. Patient be moved to the cardiology floor. Telemetry. Serial troponin. 2D echo. Given spinal surgery yesterday IV heparin relatively contraindicated. Will also reach out to Dr. Sanchez from orthopedic spine Time spent for critical care about 40 minutes November 18: P patient is moved to the telemetry floor last night. Seen by cardiology earlier today. IV heparin was discontinued. Some oozing in incision site. Patient has slight chest discomfort earlier today. Feels a bit cold. Per cardiology Imdur added. Pending 2D echo. Also Lopressor 12.5 twice daily added. Spoke to the patient and . December 18: No chest pain. Told the patient to increase activity. 2D echo showed preserved LV function. No wall motion abnormality reported. Does feel a bit tired. Discussed with patient and . Oral intake fair December 19: Pain is better. Eating better. I saw the patient earlier today. Later nurse called me that patient had a bowel movement. Some swelling of the scrotum. Discussed with the patient to keep it elevated. Patient ambulating better. Active Medications Hydrocodone Bitart/Acetaminophen (Hydrocodone/Apap 5-325mg 1 Each Tab) 1 each PO Q4HR PRN PRN Reason: Pain Stop: 01/14/25 13:05 Last Admin: 12/19/24 17:56 Dose: 1 each Albuterol Sulfate (Albuterol Nebulized 2.5 Mg/3 Ml) 2.5 mg INHALATION RT-Q6H PRN PRN Reason: Shortness Of Breath Aspirin (Aspirin 81 Mg) 81 mg PO DAILY ZAYRA Stop: 01/15/25 08:59 Last Admin: 12/19/24 08:40 Dose: 81 mg Atorvastatin Calcium (Atorvastatin 80 Mg Tab) 80 mg PO HS [facility] Last Admin: 12/18/24 20:13 Dose: 80 mg Benzocaine/Menthol (Benzocaine/Menthol Lozeng 1 Each Lozenge) 1 each MUCOUS MEM Q4HR PRN PRN Reason: Sore Throat Stop: 01/14/25 13:05 Bisacodyl (Bisacodyl 10 Mg Supp) 10 mg RECTAL DAILY ZAYRA Last Admin: 12/19/24 10:40 Dose: 10 mg Bupropion HCl (Bupropion 75 Mg Tab) 75 mg PO DAILY ZAYRA Stop: 01/15/25 08:59 Last Admin: 12/19/24 08:39 Dose: 75 mg Cyclobenzaprine HCl (Cyclobenzaprine 10 Mg Tab) 10 mg PO TID PRN PRN Reason: Muscle Spasm Stop: 01/14/25 13:05 Last Admin: 12/16/24 15:50 Dose: 10 mg Diazepam (Diazepam 5 Mg Tab) 5 mg PO DAILY PRN PRN Reason: Anxiety Stop: 01/14/25 13:08 Gabapentin (Gabapentin 300 Mg Cap) 300 mg PO [facility] Stop: 01/14/25 20:59 Last Admin: 12/18/24 20:13 Dose: 300 mg Hydromorphone HCl (Hydromorphone 1 Mg/Ml 1 Ml Syringe) 1 mg IVP Q4HR PRN PRN Reason: Pain Stop: 01/14/25 13:05 Hydromorphone HCl (Hydromorphone 0.5 Mg/0.5 Ml Syringe) 0.5 mg IVP Q4HR PRN PRN Reason: Pain Stop: 01/14/25 13:05 Last Admin: 12/17/24 08:41 Dose: 0.5 mg Isosorbide Mononitrate (Isosorbide Mononitrate Er 30 Mg Tab.Er.24h) 30 mg PO DAILY [facility] Last Admin: 12/19/24 08:40 Dose: 30 mg Levothyroxine Sodium (Levothyroxine 75 Mcg Tab) 75 mcg PO DAILY@0630 [facility] Last Admin: 12/19/24 06:19 Dose: 75 mcg Magnesium Hydroxide (Magnesium Hydroxide 2,400 Mg/30 Ml Cup) 2,400 mg PO DAILY PRN PRN Reason: Constipation Stop: 01/14/25 13:05 Metoprolol Tartrate (Metoprolol Tartrate 12.5 Mg Tab) 12.5 mg PO BID [facility] Last Admin: 12/19/24 08:39 Dose: 12.5 mg Ondansetron HCl (Ondansetron 4 Mg/2 Ml Vial) 4 mg IVP Q8HR PRN PRN Reason: Nausea And Vomiting Stop: 01/14/25 13:05 Last Admin: 12/17/24 12:22 Dose: 4 mg Pantoprazole Sodium (Pantoprazole 40 Mg Tablet) 40 mg PO -BRKFST [facility] Last Admin: 12/19/24 06:19 Dose: 40 mg Senna/Docusate Sodium (Sennosides-Docusate Sodium 1 Each Tab) 1 each PO DAILY ZAYRA Stop: 01/15/25 08:59 Last Admin: 12/19/24 08:39 Dose: 1 each Senna/Docusate Sodium (Sennosides-Docusate Sodium 1 Each Tab) 2 each PO DAILY PRN PRN Reason: Constipation Stop: 01/14/25 13:05 Social history: ] Patient smoked about half a pack a day for 50 years stopped close to 40 years ago. Does take marijuana Gummies to help sleep. Alcohol rarely. Lives with his Physical examination: VITAL SIGNS: 97.3, 80, 16, 125 x 66, 95% room GENERAL: BMI 20.7, up in a chair EYES: Pupils equal. Conjunctiva ronan l. HEENT: External appearance of nose and ears normal, oral cavity grossly normal. Decreased hearing in the left ear NECK: JVD not raised; masses not palpable. HEART: First and second heart sounds are normal; no edema. LUNGS: Respiratory rate normal; clear to auscultation. ABDOMEN: Soft, nontender, liver spleen not palpable, no masses palpable.. Some scrotal swelling. Nontender PSYCH: Alert and oriented x3; mood and affect ronan l. MUSCULOSKELETAL:No Clubbing/cyanosis;muscles-grossly intact. OA in different joints. Dressing over incision site INVESTIGATIONS, reviewed in the clinical context: December 19: White count 9.1 hemoglobin 7.6 potassium 3.6 creatinine 1.1 2D echo shows preserved LV function no wall motion abnormality December 18: White count 13.9 hemoglobin 7.3 potassium 4 creatinine 1.23 Troponin I less than 0.012, 2.02, 1.79 December 16: White count 7.3 hemoglobin 8.3 potassium 4.4 creatinine 1.4 December 15, 2024: White count 14.8 hemoglobin 8.9 platelets 224 sodium 130 potassium 4 BUN 22 creatinine 1.46 Previous labs: November 19, 2024: BUN 30.8 creatinine 1.6 hemoglobin 10.3 Assessment plan: - Spinal stenosis, DJD D, herniated nucleus pulposus, lower extremity colopathy, neurogenic claudication, low back pain. Followed by laminectomy decompression discectomy etc. By Dr. Jarek Sanchez December 15, 2024 Some blood saturation of the incision site. Patient was on IV heparin overnight. Now discontinued. CHARLY drain in place - Acute non-ST elevation myocardial infarction, postoperative Did get IV heparin for some time now discontinued. Imdur. Lopressor. Aspirin. Lipitor. 2D echo shows preserved LV function, no wall motion abnormality Seen by Dr. Angelique Teran from cardiology. Follow-up outpatient - Acute postop hypotension. Patient does take antihypertensives. Estimated blood loss was 200 cc. Lisinopril and amlodipine discontinued Bilateral thigh-high stockings. Follow CBC - Essential hypertension. Currently blood pressure running low. Amlodipine Zestoretic were discontinued Lopressor 12.5 p.o. twice daily - Anemia of chronic kidney disease - Chronic kidney disease stage III yea likely nephrosclerosis Baseline creatinine 1.6 - Acute postprocedure blood loss anemia expected from surgery IV Ferrlecit. Oral ferrous sulfate - Hyperlipidemia Lipitor - COPD in prior smoker Albuterol as needed. - Hypothyroid Synthroid 75 mcg a day - GERD Omeprazole 40 mg a day Doing better. Discussed with patient and . Follow-up with cardiology outpatient. Thank you Dr. 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 right shoulder partial torn ligament. colitis- intermittent diarrhea- problems with citrus foods. pt states exposure to agent orange in [place] [id number]. left ear [place] [employer] [place]. History of Any Multi-Drug Resistant Organisms: None Reported Past Surgical History: Hernia Repair, Orthopedic Surgery Additional Past Surgical History / Comment(s): soft tissue cancer removed 2020, left carotid endartectomy, left tibia surg with titanium, colonoscopy Past Anesthesia/Blood Transfusion Reactions: Previous Problems w/ Anesthesia Additional Past Anesthesia/Blood Transfusion Reaction / Comm: had trouble urinating after leg surg & carotid endartectomy Past Psychological History: No Psychological Hx Reported Smoking Status: Former smoker Past Alcohol Use History: Rare Additional Past Alcohol Use History / Comment(s): quit smoking 40 yrs ago; smoked approx 1/2 ppd x 15 yrs. advised no alcohol 24 hrs prior to surg. Past Drug Use History: Marijuana Additional Drug Use History / Comment(s): marijuana gummies to help sleep- advi sed none 24 hrs prior to surg.
[2024-12-20 09:28] VITALS: BP 162/71; PULSE 89; TEMP 97.8
--- NOTE | 2024-12-20 09:44 | P.DS ---
Providers Date of admission: 12/17/24 09:55 Expected date of discharge: 12/20/24 Attending physician: Jarek Sanchez Consults: 12/15/24 13:22 Consult Physician Routine Consulting Provider: Chandrakant Wilson Consult Reason/Comments: Medical management, history of hyponatremia Do you want consulting provider notified?: Yes 12/16/24 16:57 Consult Physician Stat Consulting Provider: Puma Teran Consult Reason/Comments: Troponin 2.02 Do you want consulting provider notified?: Yes Primary care physician: Stated None Hospital Course: Postoperative day #5 Patient is seen and examined today at bedside. The patient has some pain around the surgical site as expected. Pain is being controlled with medication. He is becoming more mobile with his back. He is getting to be more stable on his feet. He is tolerating his regular diet. He denies any chest pain or shortness of breath. He has had a few bowel movements and is passing gas. Physical Exam Afebrile with stable vital signs Abdomen is soft nontender. Mild distention without any pain chest has good excursion deep and space expiration The incision site is clean dry and intact. No erythema there is no purulence. His back appears to be clear Extremities have not had neurologic change from prior to surgery. He has sustained dorsiflexion plantarflexion EHL Calves and thighs were soft nontender without evidence of DVT. Assessment/Plan Postoperative day #4 status post open decompression and fusion L1 L5 for his spinal stenosis with degenerative scoliosis and lower extremity colopathy and neurogenic claudication Chest pain seems to be stabilized without evidence of loss of cardiac function Patient is progressing as a little bit slowly from the surgery in terms of his ability to mobilize and have bowel movements. His cardiac issues seem to be stabilized We will continue to increase the patient's mobilization with therapy. He is tolerating his regular diet voiding freely. His pain is controlled and his incision is looking good. He will be discharged home today. Pertinent Studies: Laboratory Tests 12/19/24 12/19/24 07:52 07:52 WBC 11.13 H RBC 2.48 L Hgb 7.6 L Hct 23.3 L Sodium 131 L Glucose 139 H Patient Condition at Discharge: Fair Plan - Discharge Summary Discharge Rx Participant: No New Discharge Prescriptions: New Sennosides-Docusate Sodium [Senokot-S] 1 each PO DAILY #30 tab HYDROcodone/APAP 5-325MG [[place] 5] 1 each PO Q4HR PRN #30 tab PRN Reason: Pain Isosorbide Mononitrate ER [Imdur] 30 mg PO DAILY #30 tab Atorvastatin [Lipitor] 80 mg PO HS #30 tab Metoprolol Tartrate [Lopressor] 12.5 mg PO BID #60 tab Nitroglycerin Sl Tabs [Nitrostat] 0.4 mg SUBLINGUAL Q5M PRN #25 tab PRN Reason: Chest Pain Ferrous Sulfate [Feosol] 325 mg PO DAILY #30 tab Continue buPROPion [Wellbutrin] 75 mg PO DAILY Triamcinolone 0.1% Cream [Kenalog 0.1% Cream] 1 applicatio TOPICAL BID PRN PRN Reason: eczema Omeprazole 40 mg PO DAILY Aspirin [Adult Low Dose Aspirin EC] 81 mg PO DAILY Gabapentin 300 mg PO HS Clobetasol Propionate [Temovate 0.05% Cream] 1 applic TOPICAL DAILY PRN PRN Reason: eczema diazePAM [Valium] 5 mg PO DAILY PRN PRN Reason: Anxiety Albuterol Inhaler [Ventolin Hfa Inhaler] 1 - 2 puff INHALATION Q6H PRN PRN Reason: Shortness Of Breath Levothyroxine Sodium [Synthroid] 75 mcg PO DAILY Discontinued traMADol HCL 50 mg PO TID PRN PRN Reason: Pain amLODIPine BESYLATE 5 mg PO DAILY Atorvastatin [Lipitor] 40 mg PO HS Lisinopril-Hctz 20-12.5 mg [Zestoretic 20-12.5] 1 tab PO BID Discharge Medication List Albuterol Inhaler [Ventolin Hfa Inhaler] 1 - 2 puff INHALATION Q6H PRN 12/09/24 [History] Aspirin [Adult Low Dose Aspirin EC] 81 mg PO DAILY 12/09/24 [History] Clobetasol Propionate [Temovate 0.05% Cream] 1 applic TOPICAL DAILY PRN 12/09/24 [History] Gabapentin 300 mg PO HS 12/09/24 [History] Levothyroxine Sodium [Synthroid] 75 mcg PO DAILY 12/09/24 [History] Omeprazole 40 mg PO DAILY 12/09/24 [History] Triamcinolone 0.1% Cream [Kenalog 0.1% Cream] 1 applicatio TOPICAL BID PRN 12/09/24 [History] buPROPion [Wellbutrin] 75 mg PO DAILY 12/09/24 [History] diazePAM [Valium] 5 mg PO DAILY PRN 12/09/24 [History] Atorvastatin [Lipitor] 80 mg PO HS #30 tab 12/19/24 [Rx] Ferrous Sulfate [Feosol] 325 mg PO DAILY #30 tab 12/19/24 [Rx] Isosorbide Mononitrate ER [Imdur] 30 mg PO DAILY #30 tab 12/19/24 [Rx] Metoprolol Tartrate [Lopressor] 12.5 mg PO BID #60 tab 12/19/24 [Rx] Nitroglycerin Sl Tabs [Nitrostat] 0.4 mg SUBLINGUAL Q5M PRN #25 tab 12/19/24 [Rx] Sennosides-Docusate Sodium [Senokot-S] 1 each PO DAILY #30 tab 12/19/24 [Rx] HYDROcodone/APAP 5-325MG [[place] 5] 1 each PO Q4HR PRN #30 tab 12/20/24 [Rx] Follow up Appointment(s)/Referral(s): Chalino Keller PAC [PHYSICIAN SLATE SPLITTER] - 2 Weeks (Patient may follow-up with Chalino Keller PA-C or Dr. Nino Sanchez at [facility] in 2-3 weeks following discharge. ) Puma Teran MD [STAFF PHYSICIAN] - 3 Weeks Patient Instructions/Handouts: Lumbar Spinal Stenosis (DC), Laminectomy (DC) Activity/Diet/Wound Care/Special Instructions: 1. Patient may shower with Optifoam dressing intact. 2. Patient may remove Optifoam dressing in 3 days and shower without a dressing at that time. 3. Patient should refrain from driving until at least after their first follow- up appointment in the office. 4. Patient should avoid excessive bending, twisting, lifting; avoid overhead lifting; no lifting greater than 10 pounds 5. Take medications as prescribed 6. Patient should avoid anti-inflammatory medications over the next 6 weeks postoperatively 7. Do not soak in tub Patient to follow-up with russian language professor in [place] in 1 to 2 weeks. Discharge Disposition: HOME WITH HOME HEALTH SERVICES
--- NOTE | 2024-12-24 12:22 | CDI ---
Date: 12/24/2024 From: Zuly [email or web address] Email: [email or web address] Admit Date: 12/17/2024 09:55:00 AM Patient Name: Trino Fernandez Visit Number: [id number] Discharge Date: 12/20/2024 11:08:00 AM ATTENTION: The Clinical Documentation Specialists (CDI) and [facility] Coding Staff appreciate your assistance in clarifying documentation. Please respond to the clarification below the line at the bottom and electronically sign. The CDI & [facility] Coding staff will review the response and follow-up if needed. Please note: Queries are made part of the Legal Health Record. If you have any questions, please contact the author of this message via ITS. Dr. Marissa Sanchez, Acute postop hypotension is documented in the Internal Medicine Progress Note on 12/16/2024 and the patient underwent elective decompression and fusion of the lumbar spine on 12/15/2024. Additional clarification is requested regarding the relationship, if any, that exists between the diagnosis and the procedure. History/Risk Factors: 74-year-old male presented to [facility] for elective spinal surgery. PMH: Former smoker, emphysema/chronic obstructive pulmonary disease, agent orange exposure in [place], hypertension, stage 3a chronic kidney disease Operative Report (12/15/2024): o Pre/Post-Operative Diagnosis: Spinal stenosis, degenerative scoliosis, herniated nucleus pulposus, lower EXTR radiculopathy, neurogenic claudication, degenerative disc disease, low back pain, facet arthrosis o Procedures Performed: Open posterior lateral lumbar decompression and fusion lumbar spine at L1-2 L2-3 L3-4 L4-5 Wide bilateral open laminectomy decompression with partial foraminotomies and facetectomy L1-L2 3 L3-4 L4-5 Placement of pedicle screws and hardware L1-L2 L3-L4-L5 bilaterally Transforaminal lumbar interbody fusion L3-4 L4-5 for a 360-degree fusion Discectomy for decompression L2-3 L3-4 L4-5 Clinical indicators: Documentation Location: Electronic Medical Record Internal Medicine Progress Note (12/16/2024): o When postop patient was brought to the floor patient's blood pressure was down to the 80s systolic. EBL was about 200 cc., there was not any significant output through the CHARLY drain. Patient does take antihypertensives at home. Postop hemoglobin taken was 8.9. Preop about a month ago was 10.3 o December 16Blood pressure continues to run on the lower side. Antihypertensives have been held. IV Ferrlecit ordered o Acute postop hypotensionCould be some component of anesthesia o Essential hypertension. Currently blood pressure running low. Hold off amlodipine. Use Zestoretic only for systolic blood pressure above 120 o Acute post-procedure blood loss anemia, expected from surgery Vital Sign Trend: Date Time Temperature HR RR BP SpO2 12/15/2024 07:14 N/A 74 14 143/83 100% on 2L NC 12/15/2024 13:25 97.4 F 90 14 101/50 98% on 8L Simple Mask 12/15/2024 13:40 N/A 85 12 82/49 100% on 6L Simple Mask 12/15/2024 16:34 N/A 86 N/A 70/40 100% on 2L NC 12/16/2024 07:19 99.1 F 101 16 97/57 95% on Room Air 12/17/2024 16:00 98.7 F 95 16 121/84 95% on Room Air 12/18/2024 12:00 N/A 86 17 143/96 97% on Room Air Lab Results: 12/15/2024 12/16/2024 12/17/2024 12/18/2024 12/19/2024 Hemoglobin 8.9 8.3 8.2 7.3 7.6 Treatment: Cardiology Consultation Ferrlecit 125mg IVPB x 2 Doses 0.9% Sodium Chloride IV Infusion @ 75mL/hr. Telemetry Monitoring Antihypertensive Medications Temporarily Held What relationship, if any, exists between the diagnosis of hypotension and the surgical procedure? [ x ] Hypotension, related to blood loss, is clinically significant and not a complication of the surgical procedure [ ] Hypotension is not clinically significant and not a complication of the surgical procedure [ ] Hypotension is clinically significant and a complication of the surgical procedure. [ ] Other please specify ____ [ ] Unable to determine MTDD
== END 2024-12-20 11:08 | disposition home health service (06) | DRG 426 ==
LOC: OR 05:44 → 4SSUR 13:45 → 3SCARD 12-16 17:58 → OR 12-17 09:55 → 3SCARD 12-17 09:55
PROVIDERS: ADMIT Orthopaedic Surgery Orthopaedic Surgery of the Spine; ATTEND Orthopaedic Surgery Orthopaedic Surgery of the Spine
PROC: 01NB0ZZ Release Lumbar Nerve, Open Approach (ICD-10-PCS; 2024-12-15)
PROC: 0ST20ZZ Resection of Lumbar Vertebral Disc, Open Approach (ICD-10-PCS; 2024-12-15)
PROC: 4A1004G Monitoring of Central Nervous Electrical Activity, Intraoperative, Open Approach (ICD-10-PCS; 2024-12-15)
PROC: 0SG10AJ Fusion of 2 or more Lumbar Vertebral Joints with Interbody Fusion Device, Posterior Approach, Anterior Column, Open Approach (ICD-10-PCS; principal; 2024-12-15 07:30)
PROC: 0SG1071 Fusion of 2 or more Lumbar Vertebral Joints with Autologous Tissue Substitute, Posterior Approach, Posterior Column, Open Approach (ICD-10-PCS; 2024-12-15 07:30)
DX: M48.062 Spinal stenosis, lumbar region with neurogenic claudication (principal); I21.4 Non-ST elevation (NSTEMI) myocardial infarction; I27.22 Pulmonary hypertension due to left heart disease; D62 Acute posthemorrhagic anemia; E87.1 Hypo-osmolality and hyponatremia; D63.1 Anemia in chronic kidney disease; M41.56 Other secondary scoliosis, lumbar region; N18.31 Chronic kidney disease, stage 3a; J43.9 Emphysema, unspecified; E03.9 Hypothyroidism, unspecified; I12.9 Hypertensive chronic kidney disease with stage 1 through stage 4 chronic kidney disease, or unspecified chronic kidney disease; I08.1 Rheumatic disorders of both mitral and tricuspid valves; M47.26 Other spondylosis with radiculopathy, lumbar region; M51.16 Intervertebral disc disorders with radiculopathy, lumbar region; H90.42 Sensorineural hearing loss, unilateral, left ear, with unrestricted hearing on the contralateral side; E78.5 Hyperlipidemia, unspecified; I95.89 Other hypotension; K21.9 Gastro-esophageal reflux disease without esophagitis; K52.89 Other specified noninfective gastroenteritis and colitis; W07.XXXA Fall from chair, initial encounter; Y92.230 Patient room in hospital as the place of occurrence of the external cause; Z79.890 Hormone replacement therapy; Z79.82 Long term (current) use of aspirin; Z79.899 Other long term (current) drug therapy; Z87.891 Personal history of nicotine dependence; Z86.73 Personal history of transient ischemic attack (TIA), and cerebral infarction without residual deficits; Z65.5 Exposure to disaster, war and other hostilities; Z77.098 Contact with and (suspected) exposure to other hazardous, chiefly nonmedicinal, chemicals
CPT/HCPCS: 72100; 80048; 80053; 84484; 85025; 85027; 86891; 93306